=== PATIENT | male | born 1955 | race Caucasian/White ===

== ENCOUNTER 2024-09-13 18:13 | Inpatient (IN) ==
[2024-09-13 19:18] LABS: Basophils # (auto) 0.02 K/uL (0.00-0.20); Basophils % (auto) 0.3 %; Eosinophils # (auto) 0.13 K/uL (0.00-0.50); Eosinophils % (auto) 1.8 %; Hematocrit (blood only) 26.1 % (42.0-52.0); Hemoglobin 8.4 g/dl (14.0-18.0); Immature Granulocytes # (auto) 0.04 K/uL (0.01-0.20); Immature Granulocytes % (auto) 0.5 %; Lymphocytes # (auto) 0.58 K/uL (1.20-3.40); Lymphocytes % (auto) 7.9 %; Mean Corpuscular Hemoglobin 28.2 pg (25.0-34.0); Mean Corpuscular Hgb Conc 32.2 g/dL (32.0-36.0); Mean Corpuscular Volume 87.6 fL (80.0-100.0); Mean Platelet Volume 8.6 fL (9.4-12.4); Monocytes # (auto) 0.62 K/uL (0.11-0.59); Monocytes % (auto) 8.5 %; Neutrophils # (auto) 5.92 K/uL (1.40-6.50); Platelet Count 196 K/uL (130-400); RDW Coefficient of Variation 15.3 % (11.5-14.5); RDW Standard Deviation 48.9 fL (36.4-46.3); Red Blood Count 2.98 M/uL (4.70-6.10); White Blood Count 7.31 K/ul (4.8-10.8)
[2024-09-13 19:37] LABS: Albumin Globulin Ratio 1.2 (0.9-2); Albumin Level 4.2 gm/dl (3.4-5.0); BUN Creatinine Ratio 24.3 (10-20); Bilirubin,Total 0.7 mg/dl (0.2-1.0); Calcium 10.6 mg/dl (8.6-10.3); Creatinine Clr Calc Pharmacy 40.4 ml/min; Globulin 3.5 gm/dl (2.5-4.0); Magnesium 2.1 mg/dl (1.7-2.4); Potassium 4.3 mmol/L (3.5-5.1); Total Protein 7.7 gm/dl (6.0-8.3)
[2024-09-13 19:41] LABS: Troponin I High Sensitivity 17.9 pg/ml (0-20)
[2024-09-13 19:48] LABS: INR 1.1 (0.9-1.1); Partial Thromboplastin Ratio 1.1; Partial Thromboplastin Time 30 Seconds (21-31); Prothrombin Time 11.4 Seconds (9.0-12.0)
--- NOTE | 2024-09-13 20:32 | XRay Report ---
Exam(s): XR CXR 1 VIEW EXAM: XR Chest, 1 View CLINICAL HISTORY: Reason for exam: Sepsis. TECHNIQUE: Frontal view of the chest. COMPARISON: No relevant prior studies available. FINDINGS: Lungs: Perihilar peribronchial thickening as can be seen in the setting of infection or bronchitis. Pleural space: No pleural effusion. No pneumothorax. Heart: Unremarkable. No cardiomegaly. IMPRESSION: Perihilar peribronchial thickening as can be seen in the setting of infection or bronchitis. Electronically signed by: Presley Mata MD 09/13/24 20:31 PM
--- NOTE | 2024-09-13 21:48 | CT Scan Report ---
Exam(s): CT RIGHT FOOT Without Contrast EXAM: CT Right Lower Extremity Without Intravenous Contrast, Foot CLINICAL HISTORY: Reason for exam: wound, ?osteomyelitis. TECHNIQUE: Axial computed tomography images of the right foot without intravenous contrast. CTDI is 25.05 mGy and DLP is 563.14 mGy-cm. Automated exposure control was utilized for the study. A dose lowering technique was utilized adhering to the principles of ALARA. COMPARISON: No relevant prior studies available. FINDINGS/IMPRESSION: Extensive destructive changes throughout the midfoot, TMT joints, subtalar joint, and to lesser degree at the ankle. Midfoot collapse. Extensive soft tissue edema. Fluid collection likely infiltrating throughout the midfoot. Superficial fluid collection and ulceration along the medial aspect of the plantar midfoot. Concerning for abscess. Electronically signed by: Presley Mata MD 09/13/24 21:47 PM
--- NOTE | 2024-09-13 22:07 | Emergency Department Note ---
Impression & Plan Osteomyelitis, Acute pain of right foot, Swelling of right foot, CKD stage 3b, GFR 30-44 ml/min, Abscess of right foot ED Provider Note ED Provider Note NAME: KRISTIE CAREY AGE:69 SEX: Male : 1955 ARRIVES VIA: private vehicle INFORMANT: Patient ED PROVIDER(s): Leni Alexander DO CHIEF COMPLAINT: right foot swelling and infection HPI: This is a 69-year-old male presents emergency department with family bedside due to concern for acutely worsening right foot infection. Patient is a known diabetic and states he was treated over the summer for likely osteomyelitis. They states he received several weeks of IV antibiotics through a PICC line and it was subsequently removed. They state over the last several weeks he has been following with outpatient wound care and the wounds residual from this to the right foot appeared to be healing. He states of the last several days he had some increased swelling again, and when seen at wound care the ulcerative area appeared to show tunneling as they were able to stick a Q- tip in there approximately 5 cm per the daughter's report. He states he did have increased swelling and pain and today throughout the day noticed a rapidly increasing swelling and discoloration particularly along the medial aspect of the right foot. He denies fevers, chills, or other joint pains. PAST MEDICAL HISTORY:See Below PAST SURGICAL HISTORY:See Below FAMILY HISTORY:See Below SOCIAL HISTORY:See Below HOME MEDICATIONS:See Below ALLERGIES:See Below VITALS:See Below PHYSICAL EXAMINATION: GENERAL: alert, well appearing, well nourished, no distress, non-toxic EYE EXAM: normal conjunctiva, PERRL and EOM's grossly intact OROPHARYNX: no exudate, no erythema, lips, buccal mucosa, and tongue normal and mucous membranes are moist NECK: supple, no nuchal rigidity, no adenopathy, non-tender LUNGS: Clear to auscultation. Normal chest wall mechanics, no w/r/r HEART: no murmurs, S1 normal and S2 normal ABDOMEN: abdomen soft, non-tender, normo-active bowel sounds, no masses, no rebound or guarding. BACK: Back is symmetrical on inspection and there is no deformity, no midline tenderness, no CVA tenderness. SKIN: no rashes, petechiae, orbruising UPPER EXTREMITIES: upper extremities are grossly normal. FROM, nml pulses b/l. LOWER EXTREMITIES: b/l pitting edema. FROM, Tenderness with palpation along the medial aspect of the right foot, gross swelling/deformity noted to the medial aspect along the arch with discolorations and central fluctuance, no bony tenderness at the ankle of the right foot, edema noted to the toes and plantar aspect additionally, 1cm ulcerative area along the plantar aspect of the arch that was cultured as clear fluid able to be expressed; no ascending lymphangitis. NEURO EXAM: Normal sensorium, cranial nerves II-XII grossly intact, normal speech, no facial droop,nogross weakness of arms, no gross weakness of legs. Gross sensation intact. No ataxia. Vital Signs: reviewed and remarkable Differential Diagnosis: cellulitis, abscess, osteomyelitis, fracture, deep space infection, tenosynovitis, as well as others were considered MEDICAL DECISION MAKING: This is a 69 yo male who presents to the ER with concern for increased pain and swelling to the right foot where he has previously had osteomyelitis but was told it had resolved after IV antibiotics this summer. He stated today swelling along the right arch occurred more rapidly. Patient is a diabetic. He denies recent trauma. Large fluctuant area with several areas of discoloration noted to the right foot around the medial arch. Foot is edematous. He was afebrile and VS stable. Labs drawn and sent, IV established, EKG and CXR performed and interpreted at bedside, and patient placed on telemetry. Wound culture obtained from small ulcerative lesion along the planter aspect of the arch. Patient sent for CT foot and I discussed antibiotics with pharmacist, Angel, given recent kidney injury from vancomycin. We discussed renal dosing. CT foot suggestive of abscess and bony destruction at the midfoot suggesting osteomyelitis. Patient also has a hx of Charcot neuropathy. Case discussed with the hospitalist team for additional evaluation and mgmt. Consultation(s): 2239: Discussed with Dr. Renteria, [facility] hospitalist team, for additional evaluation and management. ER Treatment Provided: See below Diagnostics Interpreted By Me: -ECG: nsr at 94, 1st degree AV block, nml axis, nml intervals, no acute ST/T wave changes -Cardiac Monitoring: An order was placed for continuous cardiac monitoring. The monitor shows a rate of 86 with normal sinus rhythm. -Laboratory studies: As stated above and show below. -Imaging studies: X-ray Chest: A single view study of the chest was reviewed and was negative for cardiomegaly, focal infiltrate, effusion, pulmonary edema, or wide mediastinum. Triage Nursing Note Reviewed Prior/Outside Records Reviewed Past Med/Surg History Problem List (Updated 09/14/24 @ 13:36 by Leni Alexander DO) Abscess of right foot (Acute) Swelling of right foot (Acute) Acute pain of right foot (Acute) Osteomyelitis (Acute) Charcot joint of right foot Hyperlipidemia Anemia in chronic kidney disease (CKD) Insomnia PAD (peripheral artery disease) BPH w urinary obs/LUTS Hypertension Diabetes mellitus CKD stage 3b, GFR 30-44 ml/min (Acute) Osteomyelitis of right foot Medical History Vancomycin adverse reaction History of Clostridioides difficile colitis History of deep venous thrombosis (DVT) of distal vein of right lower extremity Social History Smoking Status: Never smoker Hx Alcohol Use: No Hx Substance Use: No Preferred Language: Georgian Communication Ability: Effective Dental Scheduler Required: No Beliefs That Will Affect Care: None Current Living Situation: Family Current Living Situation Comment: With daughter Ayla Other Information That Helps Us Care for You: No Feels Safe at Home: Yes Safety Concerns: Feels Safe At This Time Assistive Devices: Cane and Glasses Allergies Allergies Allergy/AdvReac Type Severity Reaction Status Date / Time vancomycin AdvReac caused Verified 09/13/24 22:47 kidney failure Home Meds Home Medications Medication Instructions Recorded Confirmed amlodipine 10 mg tablet 10 mg PO QAM 09/13/24 09/13/24 atorvastatin 10 mg tablet 10 mg PO HS 09/13/24 09/13/24 epoetin josselin 20,000 unit/mL 20,000 unit .EVERY OTHER WEEK 09/13/24 09/13/24 injection solution (Procrit) ergocalciferol (vitamin D2) 1,250 1,250 mcg PO WK 09/13/24 09/13/24 mcg (50,000 unit) capsule fluticasone propionate 50 2 spray intranasal DAILY 09/13/24 09/13/24 mcg/actuation nasal spray,suspension furosemide 40 mg tablet 40 mg PO DAILY PRN swelling 09/13/24 09/13/24 hydralazine 50 mg tablet 50 mg PO AMHS 09/13/24 09/13/24 insulin glargine 100 unit/mL (3 30 unit subcut [facility] 09/13/24 09/13/24 mL) subcutaneous pen (Lantus Solostar U-100 Insulin) metoprolol succinate 25 mg 25 mg PO QPM 09/13/24 09/13/24 tablet,extended release 24 hr polysaccharide iron complex 150 mg 150 mg PO QAM 09/13/24 09/13/24 iron capsule sevelamer HCl 800 mg tablet 800 mg PO BIDM 09/13/24 09/13/24 sodium bicarbonate 650 mg tablet 650 mg PO TID 09/13/24 09/13/24 tamsulosin 0.4 mg capsule 0.4 mg PO HS 09/13/24 09/13/24 zolpidem 10 mg tablet 10 mg PO HS PRN Sleep 09/13/24 09/13/24 Results & Data (ED) Vital Signs Vital Signs - 24 hr 09/13/24 18:31 09/13/24 21:19 09/13/24 21:19 Temperature 37.1 C Temperature Source Oral Pulse Rate 90 Pulse Rate [Apical] 80 Pulse Rhythm [Apical] Pulse Strength [Apical] Weak Respiratory Rate 18 19 Respiratory Effort / Characteristics Non-Labored Spontaneous Non-Labored Spontaneous Respiratory Depth Normal Normal Respiratory Pattern Blood Pressure 114/80 Blood Pressure [Right Arm] 141/79 H Blood Pressure Mean 91 Blood Pressure Mean [Right Arm] 99 Blood Pressure Position Sitting Blood Pressure Position [Right Arm] Semi-fowlers Pulse Oximetry 98 94 95 Oxygen Delivery Method Room Air Room Air Room Air Sepsis Recent Fever Within 48 Hours No Sepsis New/Unexplained Change in Mental Status No Sepsis Action Taken by Nursing No Action Required 09/13/24 21:19 09/13/24 21:28 09/13/24 23:00 Temperature Temperature Source Pulse Rate 84 83 Pulse Rate [Apical] 88 Pulse Rhythm [Apical] Regular Pulse Strength [Apical] Normal Respiratory Rate 23 18 Respiratory Effort / Characteristics Non-Labored Respiratory Depth Normal Respiratory Pattern Regular Blood Pressure Blood Pressure [Right Arm] 143/96 H Blood Pressure Mean Blood Pressure Mean [Right Arm] 111 Blood Pressure Position Blood Pressure Position [Right Arm] Sitting Pulse Oximetry 95 93 Oxygen Delivery Method Room Air Room Air Sepsis Recent Fever Within 48 Hours Sepsis New/Unexplained Change in Mental Status Sepsis Action Taken by Nursing Laboratory Data 09/14/24 07:06 09/14/24 07:06 Lab Results 09/13/24 09/13/24 Range/Units 18:55 23:29 WBC 7.31 (4.8-10.8) K/ul RBC 2.98 L (4.70-6.10) M/uL Hgb 8.4 L (14.0-18.0) g/dl Hct 26.1 L (42.0-52.0) % MCV 87.6 (80.0-100.0) fL MCH 28.2 (25.0-34.0) pg MCHC 32.2 (32.0-36.0) g/dL RDW Std Deviation 48.9 H (36.4-46.3) fL RDW Coeff of Mark 15.3 H (11.5-14.5) % Plt Count 196 (130-400) K/uL MPV 8.6 L (9.4-12.4) fL Immature Gran % (Auto) 0.5 % Neut % (Auto) 81.0 % Lymph % (Auto) 7.9 % Riley % (Auto) 8.5 % Eos % (Auto) 1.8 % Baso % (Auto) 0.3 % Neut # (Auto) 5.92 (1.40-6.50) K/uL Lymph # (Auto) 0.58 L (1.20-3.40) K/uL Riley # (Auto) 0.62 H (0.11-0.59) K/uL Eos # (Auto) 0.13 (0.00-0.50) K/uL Baso # (Auto) 0.02 (0.00-0.20) K/uL Immature Gran # (Auto) 0.04 (0.01-0.20) K/uL PT 11.4 (9.0-12.0) Seconds INR 1.1 (0.9-1.1) APTT 30 (21-31) Seconds PTT Ratio 1.1 Sodium 137 (136-145) mmol/L Potassium 4.3 (3.5-5.1) mmol/L Chloride 104 (98-107) mmol/L Carbon Dioxide 23 (21-32) mmol/L Anion Gap 10 (3-11) BUN 57 H (6-23) mg/dl Creatinine 2.35 H (0.6-1.4) mg/dl Est Cr Clr Drug Dosing 40.4 ml/min eGFR 29.22 BUN/Creatinine Ratio 24.3 H (10-20) Glucose 187 H (70-99(Fasting)) mg/dl POC Glucose 198 H (70-99) mg/dl Lactate 0.9 (0.4-2.0) mmol/L Calcium 10.6 H (8.6-10.3) mg/dl Magnesium 2.1 (1.7-2.4) mg/dl Total Bilirubin 0.7 (0.2-1.0) mg/dl AST 26 (13-39) U/L ALT 33 (7-52) U/L Alkaline Phosphatase 188 H (34-104) U/L Troponin I High Sens 17.9 (0-20) pg/ml Total Protein 7.7 (6.0-8.3) gm/dl Albumin 4.2 (3.4-5.0) gm/dl Globulin 3.5 (2.5-4.0) gm/dl Albumin/Globulin Ratio 1.2 (0.9-2) Procalcitonin 0.29 (0-0.5) ng/ml Administered Medications Amlodipine Besylate (Amlodipine Besylate 5 Mg Tab) 10 mg PO QAM [facility] Stop: 10/14/24 08:59 Last Admin: 09/14/24 08:39 Dose: 10 mg Documented By: DEBBIE Fluticasone Propionate (Fluticasone Propionate Na Spr 16 Gm Btl) 2 sprays SHILOH DAILY [facility] Stop: 10/14/24 08:59 Last Admin: 09/14/24 08:38 Dose: 2 sprays Documented By: DEBBIE Hydralazine HCl (Hydralazine Tab 50 Mg Tab) 50 mg PO [facility] Stop: 10/14/24 08:59 Last Admin: 09/14/24 08:39 Dose: 50 mg Documented By: DEBBIE Cefepime HCl (Maxipime 2000mg) 2,000 mg in 20 mls @ 5 mls/min IV Q12H [facility]; Protocol Stop: 09/21/24 09:59 Last Admin: 09/14/24 08:37 Dose: 5 mls/min Documented By: DEBBIE Linezolid (Zyvox) 600 mg in 300 mls @ 300 mls/hr IV Q12H [facility] Stop: 09/21/24 09:59 Last Infusion: 09/14/24 09:44 Dose: Infused Documented By: Admin: 09/14/24 08:38 Dose: 300 mls/hr Documented By: DEBBIE Lactated Ringer's (Lr) 1,000 mls @ 15 mls/hr IV .Q24H [facility] Stop: 09/15/24 05:59 Last Admin: 09/14/24 13:09 Dose: 15 mls/hr Documented By: SALVADOR Insulin Aspart (Insulin Aspart Per Unit Charge) 0 units SC Q6 [facility] Stop: 10/14/24 05:59 Last Admin: 09/14/24 12:01 Dose: Not Given Documented By: Admin: 09/14/24 05:54 Dose: 1 units Documented By: SYEDA Co-signed By: JOEY Polysaccharide Iron Complex (Iron Polysaccharide Complex 150 Mg Capsule) 150 mg PO QAM [facility] Stop: 10/14/24 08:59 Last Admin: 09/14/24 08:39 Dose: 150 mg Documented By: DEBBIE Sevelamer Carbonate (Sevelamer Carbonate 800 Mg Tab) 800 mg PO BIDM [facility] Stop: 10/14/24 07:59 Last Admin: 09/14/24 08:39 Dose: 800 mg Documented By: DEBBIE Sodium Bicarbonate (Sodium Bicarbonate 650 Mg Tab) 650 mg PO TID [facility] Stop: 10/14/24 08:59 Last Admin: 09/14/24 08:39 Dose: 650 mg Documented By: DEBBIE Zolpidem Tartrate (Zolpidem Tartrate 5 Mg Tab) 10 mg PO HS PRN PRN Reason: Sleep Stop: 10/14/24 02:38 Last Admin: 09/14/24 02:49 Dose: 10 mg Documented By: SYEDA Discontinued Medications Atorvastatin Calcium (Atorvastatin 10 Mg Tab) 10 mg PO NOW STA Stop: 09/13/24 23:41 Last Admin: 09/14/24 01:57 Dose: 10 mg Documented By: LIZA Bupivacaine HCl (Bupivacaine 0.5 % 5 Mg/1 Ml Mpf 30ml Vial) Confirm Administered Dose 30 ml .ROUTE .STK-MED ONE Stop: 09/14/24 12:40 Last Admin: 09/14/24 13:21 Dose: 20 ml Documented By: [id number] Cefepime HCl (Maxipime 2000mg) 2,000 mg in 20 mls @ 5 mls/min IV NOW STA; Protocol Stop: 09/13/24 22:07 Last Admin: 09/13/24 22:25 Dose: 5 mls/min Documented By: EARNEST Linezolid (Zyvox) 600 mg in 300 mls @ 300 mls/hr IV NOW STA Stop: 09/13/24 23:03 Last Infusion: 09/13/24 23:31 Dose: Infused Documented By: Admin: 09/13/24 22:26 Dose: 300 mls/hr Documented By: EARNEST Sodium Chloride (Nss) 1,000 mls @ 125 mls/hr IV .Q8H [facility] Stop: 09/14/24 06:29 Last Infusion: 09/14/24 08:42 Dose: Infused Documented By: Admin: 09/13/24 22:25 Dose: 125 mls/hr Documented By: EARNEST Insulin Glargine (Lantus Per Unit Charge) 15 units SQ NOW STA Stop: 09/13/24 23:30 Last Admin: 09/14/24 01:58 Dose: 15 units Documented By: LIZA Co-signed By: OLIVIER Insulin Glargine (Lantus Per Unit Charge) 15 units SQ [facility] Stop: 10/14/24 08:59 Last Admin: 09/14/24 08:38 Dose: 15 units Documented By: DEBBIE Co-signed By: CARLOS Metoprolol Succinate (Metoprolol Succ 25mg Ext Rel Tab) 25 mg PO NOW STA Stop: 09/13/24 23:30 Last Admin: 09/14/24 01:57 Dose: 25 mg Documented By: LIZA Sevelamer Carbonate (Sevelamer Carbonate 800 Mg Tab) 800 mg PO NOW STA Stop: 09/13/24 23:30 Last Admin: 09/14/24 01:57 Dose: 800 mg Documented By: LIZA Sodium Bicarbonate (Sodium Bicarbonate 650 Mg Tab) 650 mg PO NOW STA Stop: 09/13/24 23:30 Last Admin: 09/14/24 01:57 Dose: 650 mg Documented By: LIZA Tamsulosin HCl (Tamsulosin Hcl 0.4 Mg Cap) 0.4 mg PO NOW STA Stop: 09/13/24 23:42 Last Admin: 09/14/24 01:57 Dose: 0.4 mg Documented By: [employer] Data Radiologist's Impression: Duplex Scan Lower Extremity Artery 09/13/24 23:25 EXAM: US arterial duplex LE BI CLINICAL HISTORY: HX: no previous. right foot infection. H/O PAD per patient TECHNIQUE: Ultrasound examination of the bilateral lower extremities arteries with no ankle brachial indices performed. One or more of the following were performed- spectral analysis, resistive index, waveform analysis, and pulsed Doppler. COMPARISON: None. FINDINGS: Vessel Flow Pattern Right Peak Velocity Right (cm/sec) Flow Pattern Left Peak Velocity Left (cm/sec) Common Femoral Artery (RESAW OPERATOR) Triphasic 127 Triphasic 147 Deep Femoral Artery (DPA) Triphasic 66 Triphasic 97 Superficial Femoral Artery (SFA) Triphasic Proximal: 127. Mid: 101. Distal: 105. Triphasic Proximal: 148. Mid: 116. Distal: 104. Popliteal Artery (POP A) Triphasic Proximal: 90. Mid: 92. Distal: 90. Triphasic Proximal: 104. Distal: 99. Posterior Tibial Artery (NEON SIGN ERECTOR), proximal Triphasic prox:117 mid:204 pre-sten:133 at sten:209 post-sten:142 dist:114 Triphasic prox:54 mid:39 dist: 115 Peroneal artery Triphasic Proximal:31 Mid: 36. Distal: 44. Triphasic Proximal:56 Mid: 88. Distal: 63. Anterior tibial artery CHRISTY Triphasic Proximal: 126. Mid: 66. Distal: 100. Triphasic Proximal: 71. Mid: 100. Distal: 99. Dorsalis Pedis Artery (DPA) Triphasic 144 Triphasic 96 Triphasic waveform seen throughout bilateral lower limb arteries. Multiple small mural plaques seen throughout the arteries of both lower extremities. Increased peak systolic velocities of the right posterior tibial artery measuring 209 cm/s suggesting 50 to 70% stenosis. No other hemodynamically significant stenosis is noted in the arteries of both lower extremities. The peak systolic velocities are within normal limit bilaterally. Collateral Circulation: Evaluation of collateral vessels: None. No significant collateral circulation noted indicative of chronic arterial occlusion. Additional Findings: Edema seen in both calves limiting the visualization of calf vessels. IMPRESSION: 1. Multiple small mural plaques seen throughout the arteries of both lower extremities. 2. Increased peak systolic velocities of the right posterior tibial artery measuring 209 cm/s suggesting 50 to 70% stenosis. 3. Edema seen in both calves limiting the visualization of calf vessels. 4. No other hemodynamically significant stenosis is noted in the arteries of both lower extremities. Electronically signed by Moreno Chan 09-14-2024 03:02 AM Venous Doppler Study 09/13/24 23:25 EXAM: US venous doppler LE BI CLINICAL HISTORY: HX: No prev. Right foot infection. B/L LE swelling. H/O DVT per pt. TECH NOTES TO RADIOLOGIST (not to be included in final report): No obvious DVT B/L LE. Edema B/L calves, limiting vis. Complex collections bilateral pop fossa, reza: RT pop fossa: 6.3 x 1.2x 4.1 cm. LT pop fossa: 9.3 x 1.8 x 4.2 cm. Prominent probably lymph nodes bilat groin reza: RT groin: 6.1 x 1.5 x 3.8 cm LT groin : 4.5 x 0.7 x 1.7 cm TECHNIQUE: Ultrasound examination of bilateral lower extremity veins was performed in real time and duplex. One or more of the following were performed- spectral analysis, resistive index, waveform analysis, and pulsed Doppler. COMPARISON: None. FINDINGS: Normal phasic, non-pulsatile, and spontaneous flow is noted in bilateral GSV, common femoral, superficial femoral, popliteal and posterior tibial and peroneal veins. Visualized veins of both lower extremities demonstrate normal compressibility. No sonographic evidence of acute deep vein thrombosis (DVT) is detected in the visualized veins of both lower extremities. Compression and Augmentation: All evaluated veins compress fully with applied transducer pressure. Augmentation of venous flow is noted with distal compression. Additional Findings: No evidence of intraluminal thrombus. Bilateral leg and calf edema limiting the visualization of the veins. Complex area is seen at the right popliteal fossa measuring 6.3 x 1.2 x 4.1 cm. A similar complex area is seen at the left popliteal fossa measuring 9.3 x 1.8 x 4.2 cm. Enlarged lymph nodes were seen at the bilateral inguinal areas measuring at the right side 6.1 x 1.5 x 3.8 cm, and the left inguinal region measuring 4.5 x 0.7 x 1.7 cm. IMPRESSION: 1. No sonographic evidence of acute DVT is detected in bilateral common femoral, superficial femoral, popliteal and posterior tibial and peroneal veins, at the time of examination. 2. Bilateral leg and calf edema limiting the visualization of the veins. 3. Bilateral Popliteal fossa complex areas are seen likely complex Dowling's cyst. 4. Bilateral inguinal enlarged lymph nodes. 5. Clinical correlation is advised. Disclaimer: DVT could be missed early in the disease when clot burden is minimal. For patients with moderate and high pretest probability of DVT and negative ultrasound, the [employer] clinical guidelines recommend testing with a D-dimer assay or repeat ultrasound in 5-7 days. If symptoms worsen, the Society of radiologists in ultrasound recommends repeating ultrasound even earlier. Electronically signed by Moreno Chan 09-14-2024 02:59 AM Discharge Plan Visit Data Chief Complaint: Foot Injury/Pain Stated Complaint: RIGHT FOOT PAIN, SWELLING, ABCESS ED Provider: Leni Alexander Discharge Problem: Osteomyelitis, Acute pain of right foot, Swelling of right foot, CKD stage 3b, GFR 30-44 ml/min, Abscess of right foot Patient Disposition: Admitted As Inpatient Discharge Instructions Interventions: ED Discharge Assessment Last Done: 09/14/24 02:11
[2024-09-13] MEDS: SODIUM CHLORIDE 0.9% 1,000 ML IV SCH (22:25)
[2024-09-13] MEDS: CEFEPIME 2000MG 2,000 MG/20 ML SYR IV STA (22:25)
[2024-09-13] MEDS: LINEZOLID 600 MG/300 ML BAG IV STA (22:26)
[2024-09-13] MEDS ORDERED: MoRPHine SULFATE 2 MG/ML CARP IV PRN (23:41)
[2024-09-13] MEDS ORDERED: MoRPHine SULFATE 4 MG/ML 1 ML CARP\\VIAL IV PRN (23:41)
--- NOTE | 2024-09-13 23:48 | History & Physical Report ---
Date of Service September 13, 2024 Assessment & Plan (1) Osteomyelitis of right foot: (2) CKD stage 3b, GFR 30-44 ml/min: (3) Diabetes mellitus: (4) Hypertension: (5) PAD (peripheral artery disease): (6) Anemia in chronic kidney disease (CKD): Plan Recurrent right foot osteomyelitis- Patient records requested from [facility], where he was treated with 6 weeks of IV antibiotics Follow blood culture and blood culture sensitivities Empiric Zyvox 600 mg IV every 12 hours and cefepime 2 g IV every 12 hours Patient with adverse reaction to vancomycin, which cannot be used Zyvox chosen instead of daptomycin, due to question of possible bronchitis on chest x-ray CT scan of foot shows extensive struct of changes throughout the midfoot, TMT joints, subtalar joint, and to lesser degree at the ankle. Midfoot collapse. Extensive soft tissue edema. Fluid collection likely infiltrating throughout the midfoot. Superficial fluid collection and ulceration along the medial aspect of the plantar midfoot concerning for abscess Patient did have history of right lower extremity DVT, but has negative venous Dopplers this evening Lower extremity arterial Dopplers show bilateral plaque both lower extremities, and 50 to 70% stenosis of the right posterior tibial artery. Triphasic waveforms throughout both lower extremities Consult podiatry for possible I&D Patient will likely need PICC line placement and long-term IV antibiotics As noted above, obtaining records from [facility] Acetaminophen 650 mg by mouth every 6 hours as needed for mild pain or fever Morphine sulfate 2 mg IV every 3 hours as needed for moderate pain Morphine sulfate 4 mg IV every 3 hours as needed for severe pain Consult to infectious disease Consult to wound care CKD- Family reports acute injury occurred while using vancomycin IV for previous infection Creatinine 2.35 on admission, will need to compare to [facility] records Follow laboratory serially Placed on NSS at 125 mL/h Continue Savella Mayor, sodium bicarbonate, Niferex, vitamin D 2, and Procrit every other week Consult nephrology Diabetes mellitus- Glucose 187 on admission N.p.o. 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 Primary Care Provider: Jag Castellon The patient is a 69-year-old male with a past medical history including diabetic right foot osteomyelitis, that he and his family reports that he was treated with 6 weeks of IV antibiotics, and infection was reported to be healed. Patient had been doing reasonably well, but over the past week had noted some increased pain developing, and then this morning his right foot developed increased swelling and pain, with discharge noted. He went to [facility] emergency department, where they was standing room only, and since he was also interested in a second opinion, family brought him to [facility] ED for assessment. Patient reportedly had had a DVT in his right lower extremity, and had been on Eliquis, which had been stopped about 7 days ago after negative repeat ultrasound. He also had arterial Dopplers done at the same time which reportedly showed mild change without intervention needed. He reports a history of C. difficile colitis, associated with multiple courses of antibiotics for his diabetic foot ulcer, but no recent symptoms. Patient will be signing a records release form to update his records, and go over exact course of treatment that was done Allergies Allergy/AdvReac Type Severity Reaction Status Date / Time vancomycin AdvReac caused Verified 09/13/24 22:47 kidney failure Home Medications Medication Instructions Recorded Confirmed Type amlodipine 10 mg tablet 10 mg PO QAM 09/13/24 09/13/24 History atorvastatin 10 mg tablet 10 mg PO HS 09/13/24 09/13/24 History epoetin josselin 20,000 unit/mL 20,000 unit .EVERY OTHER WEEK 09/13/24 09/13/24 History injection solution (Procrit) ergocalciferol (vitamin D2) 1,250 1,250 mcg PO WK 09/13/24 09/13/24 History mcg (50,000 unit) capsule fluticasone propionate 50 2 spray intranasal DAILY 09/13/24 09/13/24 History mcg/actuation nasal spray,suspension furosemide 40 mg tablet 40 mg PO DAILY PRN swelling 09/13/24 09/13/24 History hydralazine 50 mg tablet 50 mg PO AMHS 09/13/24 09/13/24 History insulin glargine 100 unit/mL (3 30 unit subcut AMHS 09/13/24 09/13/24 History mL) subcutaneous pen (Lantus Solostar U-100 Insulin) metoprolol succinate 25 mg 25 mg PO QPM 09/13/24 09/13/24 History tablet,extended release 24 hr polysaccharide iron complex 150 mg 150 mg PO QAM 09/13/24 09/13/24 History iron capsule sevelamer HCl 800 mg tablet 800 mg PO BIDM 09/13/24 09/13/24 History sodium bicarbonate 650 mg tablet 650 mg PO TID 09/13/24 09/13/24 History tamsulosin 0.4 mg capsule 0.4 mg PO HS 09/13/24 09/13/24 History zolpidem 10 mg tablet 10 mg PO HS PRN Sleep 09/13/24 09/13/24 History Past Med/Surg History Problem List (Updated 09/14/24 @ 05:52 by Alexx Renteria MD) Hyperlipidemia Anemia in chronic kidney disease (CKD) Insomnia PAD (peripheral artery disease) BPH w urinary obs/LUTS Hypertension Diabetes mellitus CKD stage 3b, GFR 30-44 ml/min Osteomyelitis of right foot Medical History (Updated 09/14/24 @ 05:52 by Alexx Renteria MD) Vancomycin adverse reaction History of Clostridioides difficile colitis History of deep venous thrombosis (DVT) of distal vein of right lower extremity Social History Smoking Status: Never smoker Hx Alcohol Use: No Hx Substance Use: No Preferred Language: Indonesian Communication Ability: Effective Steam Engineer Required: No Beliefs That Will Affect Care: None Current Living Situation: Family Current Living Situation Comment: With daughter Ayla Other Information That Helps Us Care for You: No Feels Safe at Home: Yes Safety Concerns: Feels Safe At This Time Assistive Devices: Cane and Glasses Review of Systems Review of Systems: The patient denies chest pain, palpitations, shortness of breath, dyspnea on exertion, cough, sore throat, fevers, chills, sweats, weight change, fatigue, nausea, vomiting, diarrhea , constipation, abdominal pain, pelvic pain, blood in urine or stool, dysuria, urinary frequency or urgency, lightheadedness, dizziness, headache, memory loss, loss of consciousness, focal or generalized weakness, numbness or tingling in arms or left lower extremity, generalized arthralgias or myalgias, back or neck pain, or night sweats. The review of systems is otherwise negative other than for that already noted above, and at least 10 systems have been reviewed. Physical Exam Physical Exam: The patient is awake, alert and oriented 3, well developed and well nourished, normocephalic and atraumatic, lying in bed and in no acute distress. HEENT--PERRL, EOMI, mucous membranes and oropharynx mildly dry. Neck--supple. No JVD. No bruits. Thyroid normal, trachea midline, no adenopathy. Heart--normal S1 and S2. No murmurs, rubs or gallops. Lungs--clear bilaterally, no respiratory distress, no accessory muscle use. Abdomen--normal bowel sounds and soft. Nontender. Nondistended. Mildly obese Extremities--1+ bilateral pretibial and pedal edema diminished pulses bilaterally, in part related to lower extremity edema. Right first MTP and great toe with moderately severe edema and erythema, presently wrapped. Dermatologic--changes as above Neurologic--cranial nerves II through XII grossly intact. Rheumatologic--normal range of motion except for right lower extremity ankle and foot Psychiatric--normal affect. Results & Data Results & Data Vital Signs (Past 12 Hours) Vital Signs Temp Pulse Pulse Resp BP BP Pulse Ox 09/13/24 23:00 88 18 143/96 H 93 09/13/24 21:28 83 09/13/24 21:19 84 23 95 09/13/24 21:19 95 09/13/24 21:19 80 19 141/79 H 94 09/13/24 18:31 37.1 C 90 18 114/80 98 O2 Del Method 09/13/24 23:00 Room Air 09/13/24 21:28 09/13/24 21:19 Room Air 09/13/24 21:19 Room Air 09/13/24 21:19 Room Air 09/13/24 18:31 Room Air Laboratory Results Laboratory Results WBC 7.31 K/ul (4.8-10.8) 09/13/24 18:55 RBC 2.98 M/uL (4.70-6.10) L 09/13/24 18:55 Hgb 8.4 g/dl (14.0-18.0) L 09/13/24 18:55 Hct 26.1 % (42.0-52.0) L 09/13/24 18:55 MCV 87.6 fL (80.0-100.0) 09/13/24 18:55 MCH 28.2 pg (25.0-34.0) 09/13/24 18:55 MCHC 32.2 g/dL (32.0-36.0) 09/13/24 18:55 RDW Std Deviation 48.9 fL (36.4-46.3) H 09/13/24 18:55 RDW Coeff of Mark 15.3 % (11.5-14.5) H 09/13/24 18:55 Plt Count 196 K/uL (130-400) 09/13/24 18:55 MPV 8.6 fL (9.4-12.4) L 09/13/24 18:55 Immature Gran % (Auto) 0.5 % 09/13/24 18:55 Neut % (Auto) 81.0 % 09/13/24 18:55 Lymph % (Auto) 7.9 % 09/13/24 18:55 [place] % (Auto) 8.5 % 09/13/24 18:55 Eos % (Auto) 1.8 % 09/13/24 18:55 Baso % (Auto) 0.3 % 09/13/24 18:55 Neut # (Auto) 5.92 K/uL (1.40-6.50) 09/13/24 18:55 Lymph # (Auto) 0.58 K/uL (1.20-3.40) L 09/13/24 18:55 [place] # (Auto) 0.62 K/uL (0.11-0.59) H 09/13/24 18:55 Eos # (Auto) 0.13 K/uL (0.00-0.50) 09/13/24 18:55 Baso # (Auto) 0.02 K/uL (0.00-0.20) 09/13/24 18:55 Immature Gran # (Auto) 0.04 K/uL (0.01-0.20) 09/13/24 18:55 PT 11.4 Seconds (9.0-12.0) 09/13/24 18:55 INR 1.1 (0.9-1.1) 09/13/24 18:55 APTT 30 Seconds (21-31) 09/13/24 18:55 PTT Ratio 1.1 09/13/24 18:55 Sodium 137 mmol/L (136-145) 09/13/24 18:55 Potassium 4.3 mmol/L (3.5-5.1) 09/13/24 18:55 Chloride 104 mmol/L (98-107) 09/13/24 18:55 Carbon Dioxide 23 mmol/L (21-32) 09/13/24 18:55 Anion Gap 10 (3-11) 09/13/24 18:55 BUN 57 mg/dl (6-23) H 09/13/24 18:55 Creatinine 2.35 mg/dl (0.6-1.4) H 09/13/24 18:55 Est Cr Clr Drug Dosing 40.4 ml/min 09/13/24 18:55 eGFR 29.22 09/13/24 18:55 BUN/Creatinine Ratio 24.3 (10-20) H 09/13/24 18:55 Glucose 187 mg/dl (70-99(Fasting)) H 09/13/24 18:55 POC Glucose 198 mg/dl (70-99) H 09/13/24 23:29 Lactate 0.9 mmol/L (0.4-2.0) 09/13/24 18:55 Calcium 10.6 mg/dl (8.6-10.3) H 09/13/24 18:55 Magnesium 2.1 mg/dl (1.7-2.4) 09/13/24 18:55 Total Bilirubin 0.7 mg/dl (0.2-1.0) 09/13/24 18:55 AST 26 U/L (13-39) 09/13/24 18:55 ALT 33 U/L (7-52) 09/13/24 18:55 Alkaline Phosphatase 188 U/L (34-104) H 09/13/24 18:55 Troponin I High Sens 17.9 pg/ml (0-20) 09/13/24 18:55 Total Protein 7.7 gm/dl (6.0-8.3) 09/13/24 18:55 Albumin 4.2 gm/dl (3.4-5.0) 09/13/24 18:55 Globulin 3.5 gm/dl (2.5-4.0) 09/13/24 18:55 Albumin/Globulin Ratio 1.2 (0.9-2) 09/13/24 18:55 Procalcitonin 0.29 ng/ml (0-0.5) 09/13/24 18:55 Impressions Chest X-Ray 09/13/24 18:35 Exam(s): XR CXR 1 VIEW EXAM: XR Chest, 1 View CLINICAL HISTORY: Reason for exam: Sepsis. TECHNIQUE: Frontal view of the chest. COMPARISON: No relevant prior studies available. FINDINGS: Lungs: Perihilar peribronchial thickening as can be seen in the setting of infection or bronchitis. Pleural space: No pleural effusion. No pneumothorax. Heart: Unremarkable. No cardiomegaly. IMPRESSION: Perihilar peribronchial thickening as can be seen in the setting of infection or bronchitis. Electronically signed by: Presley Mata MD 09/13/24 20:[address] 09/13/24 20:31 Exam(s): CT RIGHT FOOT Without Contrast EXAM: CT Right Lower Extremity Without Intravenous Contrast, Foot CLINICAL HISTORY: Reason for exam: wound, ?osteomyelitis. TECHNIQUE: Axial computed tomography images of the right foot without intravenous contrast. CTDI is 25.05 mGy and DLP is 563.14 mGy-cm. Automated exposure control was utilized for the study. A dose lowering technique was utilized adhering to the principles of ALARA. COMPARISON: No relevant prior studies available. FINDINGS/IMPRESSION: Extensive destructive changes throughout the midfoot, TMT joints, subtalar joint, and to lesser degree at the ankle. Midfoot collapse. Extensive soft tissue edema. Fluid collection likely infiltrating throughout the midfoot. Superficial fluid collection and ulceration along the medial aspect of the plantar midfoot. Concerning for abscess. Electronically signed by: Presley Mata MD 09/13/24 21:47 PM Duplex Scan Lower Extremity Artery 09/13/24 23:25 EXAM: US arterial duplex LE BI CLINICAL HISTORY: HX: no previous. right foot infection. H/O PAD per patient TECHNIQUE: Ultrasound examination of the bilateral lower extremities arteries with no ankle brachial indices performed. One or more of the following were performed- spectral analysis, resistive index, waveform analysis, and pulsed Doppler. COMPARISON: None. FINDINGS: Vessel Flow Pattern Right Peak Velocity Right (cm/sec) Flow Pattern Left Peak Velocity Left (cm/sec) Common Femoral Artery (INTERLOCKING PAVEMENT INSTALLER) Triphasic 127 Triphasic 147 Deep Femoral Artery (DPA) Triphasic 66 Triphasic 97 Superficial Femoral Artery (SFA) Triphasic Proximal: 127. Mid: 101. Distal: 105. Triphasic Proximal: 148. Mid: 116. Distal: 104. Popliteal Artery (POP A) Triphasic Proximal: 90. Mid: 92. Distal: 90. Triphasic Proximal: 104. Distal: 99. Posterior Tibial Artery (BATTERY BUILDER), proximal Triphasic prox:117 mid:204 pre-sten:133 at sten:209 post-sten:142 dist:114 Triphasic prox:54 mid:39 dist: 115 Peroneal artery Triphasic Proximal:31 Mid: 36. Distal: 44. Triphasic Proximal:56 Mid: 88. Distal: 63. Anterior tibial artery CHRISTY Triphasic Proximal: 126. Mid: 66. Distal: 100. Triphasic Proximal: 71. Mid: 100. Distal: 99. Dorsalis Pedis Artery (DPA) Triphasic 144 Triphasic 96 Triphasic waveform seen throughout bilateral lower limb arteries. Multiple small mural plaques seen throughout the arteries of both lower extremities. Increased peak systolic velocities of the right posterior tibial artery measuring 209 cm/s suggesting 50 to 70% stenosis. No other hemodynamically significant stenosis is noted in the arteries of both lower extremities. The peak systolic velocities are within normal limit bilaterally. Collateral Circulation: Evaluation of collateral vessels: None. No significant collateral circulation noted indicative of chronic arterial occlusion. Additional Findings: Edema seen in both calves limiting the visualization of calf vessels. IMPRESSION: 1. Multiple small mural plaques seen throughout the arteries of both lower extremities. 2. Increased peak systolic velocities of the right posterior tibial artery measuring 209 cm/s suggesting 50 to 70% stenosis. 3. Edema seen in both calves limiting the visualization of calf vessels. 4. No other hemodynamically significant stenosis is noted in the arteries of both lower extremities. Electronically signed by Moreno Chan 09-14-2024 03:02 AM Venous Doppler Study 09/13/24 23:25 EXAM: US venous doppler LE BI CLINICAL HISTORY: HX: No prev. Right foot infection. B/L LE swelling. H/O DVT per pt. TECH NOTES TO RADIOLOGIST (not to be included in final report): No obvious DVT B/L LE. Edema B/L calves, limiting vis. Complex collections bilateral pop fossa, reza: RT pop fossa: 6.3 x 1.2x 4.1 cm. LT pop fossa: 9.3 x 1.8 x 4.2 cm. Prominent probably lymph nodes bilat groin reza: RT groin: 6.1 x 1.5 x 3.8 cm LT groin : 4.5 x 0.7 x 1.7 cm TECHNIQUE: Ultrasound examination of bilateral lower extremity veins was performed in real time and duplex. One or more of the following were performed- spectral analysis, resistive index, waveform analysis, and pulsed Doppler. COMPARISON: None. FINDINGS: Normal phasic, non-pulsatile, and spontaneous flow is noted in bilateral GSV, common femoral, superficial femoral, popliteal and posterior tibial and peroneal veins. Visualized veins of both lower extremities demonstrate normal compressibility. No sonographic evidence of acute deep vein thrombosis (DVT) is detected in the visualized veins of both lower extremities. Compression and Augmentation: All evaluated veins compress fully with applied transducer pressure. Augmentation of venous flow is noted with distal compression. Additional Findings: No evidence of intraluminal thrombus. Bilateral leg and calf edema limiting the visualization of the veins. Complex area is seen at the right popliteal fossa measuring 6.3 x 1.2 x 4.1 cm. A similar complex area is seen at the left popliteal fossa measuring 9.3 x 1.8 x 4.2 cm. Enlarged lymph nodes were seen at the bilateral inguinal areas measuring at the right side 6.1 x 1.5 x 3.8 cm, and the left inguinal region measuring 4.5 x 0.7 x 1.7 cm. IMPRESSION: 1. No sonographic evidence of acute DVT is detected in bilateral common femoral, superficial femoral, popliteal and posterior tibial and peroneal veins, at the time of examination. 2. Bilateral leg and calf edema limiting the visualization of the veins. 3. Bilateral Popliteal fossa complex areas are seen likely complex Dowling's cyst. 4. Bilateral inguinal enlarged lymph nodes. 5. Clinical correlation is advised. Disclaimer: DVT could be missed early in the disease when clot burden is minimal. For patients with moderate and high pretest probability of DVT and negative ultrasound, the [employer] clinical guidelines recommend testing with a D-dimer assay or repeat ultrasound in 5-7 days. If symptoms worsen, the Society of radiologists in ultrasound recommends repeating ultrasound even earlier. Electronically signed by Moreno Chan 09-14-2024 02:59 AM Code Status & VTE Plan Code Status Full code VTE Prophylaxis Plan VTE Prophylaxis will be ordered: Yes PG Care Time/CCT Total # of Minutes Spent Total Time Spent with Patient: Total time spent is greater than 50% in coordination of care (as documented) at patient's floor/unit and/or counseling patient: Coding Level of Care Code 06421 INT INP/OBS CARE 3/75MIN Diagnoses Other osteomyelitis of right foot M86.8X7 Osteomyelitis type: other CKD stage 3b, GFR 30-44 ml/min N18.32 Diabetes mellitus E11.9 Hypertension I10 PAD (peripheral artery disease) I73.9 Anemia in chronic kidney disease (CKD) N18.9; D63.1 (1) Osteomyelitis of right foot Osteomyelitis type: other Qualified Code(s): M86.8X7 - Other osteomyelitis, ankle and foot
[2024-09-14] MEDS: SEVELAMER CARBONATE 800 MG TAB PO STA (01:57)
[2024-09-14] MEDS: SODIUM BICARBONATE 650 MG TAB PO STA (01:57)
[2024-09-14] MEDS: ATORVASTATIN 10 MG TAB PO STA (01:57)
[2024-09-14] MEDS: TAMSULOSIN HCL 0.4 MG CAP PO STA (01:57)
[2024-09-14] MEDS: METOPROLOL SUCC 25MG EXT REL TAB PO STA (01:57)
[2024-09-14] MEDS: LANTUS PER UNIT CHARGE SQ STA (01:58)
[2024-09-14] MEDS ORDERED: DEXTROSE 50% 50 ML SYRINGE IV PRN (02:29)
[2024-09-14] MEDS ORDERED: ONDANSETRON INJ 2 MG/ML 2 ML VIAL IV PRN ×2 (02:29→12:57)
[2024-09-14] MEDS ORDERED: GLUCOSE 10 TAB/TUBE PO PRN (02:29)
[2024-09-14] MEDS ORDERED: CARBOHYDRATES FOR HYPOGLYCEMIA PO PRN (02:29)
[2024-09-14] MEDS ORDERED: GLUCAGON FOR INJ 1 MG VIAL SQ PRN (02:29)
[2024-09-14] MEDS ORDERED: GLUCOSE 40% GEL 15 GM TUBE PO PRN (02:29)
[2024-09-14] MEDS: ZOLPIDEM TARTRATE 5 MG TAB PO PRN (02:49)
--- NOTE | 2024-09-14 03:00 | Ultrasound Report ---
EXAM: US venous doppler LE BI CLINICAL HISTORY: HX: No prev. Right foot infection. B/L LE swelling. H/O DVT per pt. TECH NOTES TO RADIOLOGIST (not to be included in final report): No obvious DVT B/L LE. Edema B/L calves, limiting vis. Complex collections bilateral pop fossa, reza: RT pop fossa: 6.3 x 1.2x 4.1 cm. LT pop fossa: 9.3 x 1.8 x 4.2 cm. Prominent probably lymph nodes bilat groin reza: RT groin: 6.1 x 1.5 x 3.8 cm LT groin : 4.5 x 0.7 x 1.7 cm TECHNIQUE: Ultrasound examination of bilateral lower extremity veins was performed in real time and duplex. One or more of the following were performed- spectral analysis, resistive index, waveform analysis, and pulsed Doppler. COMPARISON: None. FINDINGS: Normal phasic, non-pulsatile, and spontaneous flow is noted in bilateral GSV, common femoral, superficial femoral, popliteal and posterior tibial and peroneal veins. Visualized veins of both lower extremities demonstrate normal compressibility. No sonographic evidence of acute deep vein thrombosis (DVT) is detected in the visualized veins of both lower extremities. Compression and Augmentation: All evaluated veins compress fully with applied transducer pressure. Augmentation of venous flow is noted with distal compression. Additional Findings: No evidence of intraluminal thrombus. Bilateral leg and calf edema limiting the visualization of the veins. Complex area is seen at the right popliteal fossa measuring 6.3 x 1.2 x 4.1 cm. A similar complex area is seen at the left popliteal fossa measuring 9.3 x 1.8 x 4.2 cm. Enlarged lymph nodes were seen at the bilateral inguinal areas measuring at the right side 6.1 x 1.5 x 3.8 cm, and the left inguinal region measuring 4.5 x 0.7 x 1.7 cm. IMPRESSION: 1. No sonographic evidence of acute DVT is detected in bilateral common femoral, superficial femoral, popliteal and posterior tibial and peroneal veins, at the time of examination. 2. Bilateral leg and calf edema limiting the visualization of the veins. 3. Bilateral Popliteal fossa complex areas are seen likely complex Dowling's cyst. 4. Bilateral inguinal enlarged lymph nodes. 5. Clinical correlation is advised. Disclaimer: DVT could be missed early in the disease when clot burden is minimal. For patients with moderate and high pretest probability of DVT and negative ultrasound, the [employer] clinical guidelines recommend testing with a D-dimer assay or repeat ultrasound in 5-7 days. If symptoms worsen, the Society of radiologists in ultrasound recommends repeating ultrasound even earlier. Electronically signed by Moreno Chan 09-14-2024 02:59 AM
--- NOTE | 2024-09-14 03:02 | Ultrasound Report ---
EXAM: US arterial duplex LE BI CLINICAL HISTORY: HX: no previous. right foot infection. H/O PAD per patient TECHNIQUE: Ultrasound examination of the bilateral lower extremities arteries with no ankle brachial indices performed. One or more of the following were performed- spectral analysis, resistive index, waveform analysis, and pulsed Doppler. COMPARISON: None. FINDINGS: Vessel Flow Pattern Right Peak Velocity Right (cm/sec) Flow Pattern Left Peak Velocity Left (cm/sec) Common Femoral Artery (SOCCER REFEREE) Triphasic 127 Triphasic 147 Deep Femoral Artery (DPA) Triphasic 66 Triphasic 97 Superficial Femoral Artery (SFA) Triphasic Proximal: 127. Mid: 101. Distal: 105. Triphasic Proximal: 148. Mid: 116. Distal: 104. Popliteal Artery (POP A) Triphasic Proximal: 90. Mid: 92. Distal: 90. Triphasic Proximal: 104. Distal: 99. Posterior Tibial Artery (SCREW SUPERVISOR), proximal Triphasic prox:117 mid:204 pre-sten:133 at sten:209 post-sten:142 dist:114 Triphasic prox:54 mid:39 dist: 115 Peroneal artery Triphasic Proximal:31 Mid: 36. Distal: 44. Triphasic Proximal:56 Mid: 88. Distal: 63. Anterior tibial artery CHRISTY Triphasic Proximal: 126. Mid: 66. Distal: 100. Triphasic Proximal: 71. Mid: 100. Distal: 99. Dorsalis Pedis Artery (DPA) Triphasic 144 Triphasic 96 Triphasic waveform seen throughout bilateral lower limb arteries. Multiple small mural plaques seen throughout the arteries of both lower extremities. Increased peak systolic velocities of the right posterior tibial artery measuring 209 cm/s suggesting 50 to 70% stenosis. No other hemodynamically significant stenosis is noted in the arteries of both lower extremities. The peak systolic velocities are within normal limit bilaterally. Collateral Circulation: Evaluation of collateral vessels: None. No significant collateral circulation noted indicative of chronic arterial occlusion. Additional Findings: Edema seen in both calves limiting the visualization of calf vessels. IMPRESSION: 1. Multiple small mural plaques seen throughout the arteries of both lower extremities. 2. Increased peak systolic velocities of the right posterior tibial artery measuring 209 cm/s suggesting 50 to 70% stenosis. 3. Edema seen in both calves limiting the visualization of calf vessels. 4. No other hemodynamically significant stenosis is noted in the arteries of both lower extremities. Electronically signed by Moreno Chan 09-14-2024 03:02 AM
[2024-09-14] MEDS: INSULIN ASPART PER UNIT CHARGE SC SCH ×2 (05:54→18:40)
[2024-09-14 07:27] LABS: Basophils # (auto) 0.02 K/uL (0.00-0.20); Basophils % (auto) 0.4 %; Eosinophils # (auto) 0.15 K/uL (0.00-0.50); Eosinophils % (auto) 2.9 %; Hemoglobin 7.6 g/dl (14.0-18.0); Immature Granulocytes # (auto) 0.03 K/uL (0.01-0.20); Immature Granulocytes % (auto) 0.6 %; Lymphocytes # (auto) 0.53 K/uL (1.20-3.40); Lymphocytes % (auto) 10.1 %; Mean Corpuscular Hemoglobin 27.6 pg (25.0-34.0); Mean Corpuscular Hgb Conc 31.7 g/dL (32.0-36.0); Mean Corpuscular Volume 87.3 fL (80.0-100.0); Mean Platelet Volume 8.6 fL (9.4-12.4); Monocytes # (auto) 0.49 K/uL (0.11-0.59); Monocytes % (auto) 9.3 %; Neutrophils # (auto) 4.04 K/uL (1.40-6.50); Neutrophils % (auto) 76.7 %; Platelet Count 166 K/uL (130-400); RDW Coefficient of Variation 15.2 % (11.5-14.5); RDW Standard Deviation 48.1 fL (36.4-46.3); Red Blood Count 2.75 M/uL (4.70-6.10); White Blood Count 5.26 K/ul (4.8-10.8)
[2024-09-14 07:41] LABS: Estimated Average Glucose 154 mg/dl
[2024-09-14 07:57] LABS: Appearance Urine Clear (Clear); Bacteria Urine Automated None Seen (None Seen); Bilirubin Urine Negative (Negative); Blood Urine Negative (Negative); Cast Urine Automated 0-2 /lpf (0-2); Color Urine Yellow; Epithelial Cell Urine Auto 0-2 /hpf (0-2); Glucose Urine UA Negative (Negative); Ketones Urine Negative (Negative); Leukocyte Esterase Urine Negative (Negative); Nitrite Urine Negative (Negative); Protein Urine Trace (Negative); RBC Urine Automated 0-2 /hpf (0-2); Specific Gravity Urine 1.014 (1.000-1.030); Urobilinogen Urine Negative (Negative); WBC Urine Automated 0-5 /hpf (0-5)
[2024-09-14 07:58] LABS: INR 1.1 (0.9-1.1); Partial Thromboplastin Ratio 1.2; Partial Thromboplastin Time 32 Seconds (21-31); Prothrombin Time 11.8 Seconds (9.0-12.0)
[2024-09-14 08:04] LABS: Albumin Globulin Ratio 1.2 (0.9-2); Albumin Level 3.7 gm/dl (3.4-5.0); Bilirubin,Total 0.7 mg/dl (0.2-1.0); Calcium 9.9 mg/dl (8.6-10.3); Creatinine Clr Calc Pharmacy 41.9 ml/min; Hypochromasia Present; Polychromasia 1+; Tear Drop Cells 1+; Total Protein 6.7 gm/dl (6.0-8.3)
[2024-09-14] MEDS: CEFEPIME 2000MG 2,000 MG/20 ML SYR IV SCH (08:37)
[2024-09-14] MEDS: FLUTICASONE PROPIONATE NA SPR 16 GM BTL NAE SCH (08:38)
[2024-09-14] MEDS: LANTUS PER UNIT CHARGE SQ SCH ×2 (08:38→21:39)
[2024-09-14] MEDS: LINEZOLID 600 MG/300 ML BAG IV SCH (08:38)
[2024-09-14] MEDS: SEVELAMER CARBONATE 800 MG TAB PO SCH (08:39)
[2024-09-14] MEDS: hydrALAZINE TAB 50 MG TAB PO SCH (08:39)
[2024-09-14] MEDS: SODIUM BICARBONATE 650 MG TAB PO SCH (08:39)
[2024-09-14] MEDS: IRON POLYSACCHARIDE COMPLEX 150 MG CAPSULE PO SCH (08:39)
[2024-09-14] MEDS: amLODIPine BESYLATE 5 MG TAB PO SCH (08:39)
--- NOTE | 2024-09-14 08:39 | Electrocardiogram Report ---
Test Reason : Blood Pressure : */* mmHG Vent. Rate : 94 BPM Atrial Rate : 93 BPM P-R Int : 208 ms QRS Dur : 94 ms QT Int : 370 ms P-R-T Axes : 110 42 39 degrees QTcB Int : 462 ms Probable Atrial flutter with variable A-V block Abnormal ECG No previous ECGs available Confirmed by Raymundo Ashley ([id number]) on 09/14/2024 8:39:13 AM Referred By: REFERRED SELF Confirmed By: Raymundo Ashley
--- NOTE | 2024-09-14 08:46 | Nephrology Consultation ---
Date of Consultation September 14, 2024 Assessment & Plan (1) CKD stage 3b, GFR 30-44 ml/min: * Baseline Cr unknown * Nephrology records from 07/27 [facility] hospitalization have been requested * Patient appears euvolemic. Cr 2.2 this am. Electrolyte balance is acceptable. No acute indication for HD today * Urinalysis w/ trace protein. Urine sediment negative for blood. Only hyaline casts reported * Will obtain renal US, MACR * Clinically suspect vancomycin associated JENNIFER * Monitor BMP, UO (2) Osteomyelitis of right foot: * 09/13/[address] - probable abscess plantar midfoot (3) Diabetes mellitus: * Longstanding AODM. No h/o retinopathy/neuropathy. Not on ERIN/ARB/SGLT2i/GLP- 1 prior to hospitalization (4) Anemia in chronic kidney disease (CKD): * Anemia likely related to inflammation * Will order iron studies, FOBT * Consider blood transfusion for Hgb < 7.0, symptoms (5) Vancomycin adverse reaction: History of Present Illness Reason for Consultation: JENNIFER/CKD Attending Physician: Wallace Loya History of Present Illness Mr. Sales is a 69 year old white male who was seen at the request of the [facility] hospitalist service for evaluation of JENNIFER/CKD. Information for the HPI is obtained from direct patient interview and review of the EMR. HPI is summarized as follows: Mr. Sales resides in [place], [place]. His PCP is Dr. Jag Castellon. His medical history is significant for longstanding AODM (no retinopathy or neuropathy), HTN, BPH, R calf DVT and C. difficile colitis. He denies any prior h/o CKD and had not undergone nephrology outpatient evaluation in the past. His baseline Cr is unknown. Mr. Sales reports development of a R foot ulcer summer 2023. He underwent podiatric care that subsequently became infected. Mr. Sales was hospitalized at [facility] 04/26,.diagnosed w/ osteomyelitis and treated w/ 6 weeks IV antibiotic therapy including vancomycin. He reports a rash related to the medication. He was readmitted to [facility] 07/27 w/ JENNIFER and cared for by Dr. Benjamin. The patient states that he was diagnosed w/ vancomycin nephrotoxicity and did not require kidney biopsy or HD. He is uncertain what his creatinine value was during the hospitalization or at the time of discharge but does report good UO. Medical records have been requested from [facility]. Mr. Sales denies the use of NSAIDS, herbal supplements or recent exposure to IV contrast. Review of his outpatient medication list reveals that he has not recently been taking ERIN or ARB therapy. Mr. Sales presented to [facility] last evening w/ recurrent R foot infection. [facility] was "standing room only" and he chose to travel to [facility] for evaluation and "2nd opinion". Admission laboratory studies reveals Hgb 7.6, Cr 2.35. Allergies Allergy/AdvReac Type Severity Reaction Status Date / Time vancomycin AdvReac caused Verified 09/13/24 22:47 kidney failure Home Medications Medication Instructions Recorded Confirmed Type amlodipine 10 mg tablet 10 mg PO QAM 09/13/24 09/13/24 History atorvastatin 10 mg tablet 10 mg PO HS 09/13/24 09/13/24 History epoetin josselin 20,000 unit/mL 20,000 unit .EVERY OTHER WEEK 09/13/24 09/13/24 History injection solution (Procrit) ergocalciferol (vitamin D2) 1,250 1,250 mcg PO WK 09/13/24 09/13/24 History mcg (50,000 unit) capsule fluticasone propionate 50 2 spray intranasal DAILY 09/13/24 09/13/24 History mcg/actuation nasal spray,suspension furosemide 40 mg tablet 40 mg PO DAILY PRN swelling 09/13/24 09/13/24 History hydralazine 50 mg tablet 50 mg PO AMHS 09/13/24 09/13/24 History insulin glargine 100 unit/mL (3 30 unit subcut [facility] 09/13/24 09/13/24 History mL) subcutaneous pen (Lantus Solostar U-100 Insulin) metoprolol succinate 25 mg 25 mg PO QPM 09/13/24 09/13/24 History tablet,extended release 24 hr polysaccharide iron complex 150 mg 150 mg PO QAM 09/13/24 09/13/24 History iron capsule sevelamer HCl 800 mg tablet 800 mg PO BIDM 09/13/24 09/13/24 History sodium bicarbonate 650 mg tablet 650 mg PO TID 09/13/24 09/13/24 History tamsulosin 0.4 mg capsule 0.4 mg PO HS 09/13/24 09/13/24 History zolpidem 10 mg tablet 10 mg PO HS PRN Sleep 09/13/24 09/13/24 History Patient History Medical History Vancomycin adverse reaction History of Clostridioides difficile colitis History of deep venous thrombosis (DVT) of distal vein of right lower extremity Social History Smoking Status: Never smoker Hx Alcohol Use: No Hx Substance Use: No Preferred Language: Malaysian Communication Ability: Effective Senior Genetic Counselor Required: No Beliefs That Will Affect Care: None Current Living Situation: Family Current Living Situation Comment: With daughter Ayla Other Information That Helps Us Care for You: No Feels Safe at Home: Yes Safety Concerns: Feels Safe At This Time Assistive Devices: Cane and Glasses Review of Systems Constitutional: no fever Eyes: no problem reported Ear, Nose, Mouth, Throat: no problem reported Respiratory: no cough and no dyspnea Cardiovascular: no chest pain Gastrointestinal: no abdominal pain, no nausea, no vomiting and no diarrhea/loose stools Genitourinary: no dysuria, no hematuria or no flank pain Integumentary: no rash Neurologic: no problem reported Physical Exam Constitutional: not in distress Eyes: PERRL, conjunctivae normal, anicteric sclerae ENMT: Mouth: + dry oral mucous membranes Neck: trachea midline, no thyromegaly Respiratory: normal respiratory effort, lungs clear to auscultation Cardiovascular: RRR, no murmur, no edema Gastrointestinal (Abdomen): normal bowel sounds, soft, nontender, no hepatosplenomegaly Musculoskeletal: Extremities: + foot abnormality Right (fluctuant lesion plantar surface R foot) Skin: no rashes, warm and dry Neurologic: awake; not confused Results & Data Vital Signs (Past 12 Hours) Vital Signs Temp Pulse Pulse Resp BP BP Pulse Ox 09/14/24 07:46 36.3 C L 18 149/75 H 92 09/14/24 07:26 82 09/14/24 03:05 36.5 C 87 18 163/81 H 94 09/14/24 02:30 85 09/14/24 02:29 36.5 C 87 18 163/81 H 94 09/14/24 02:11 36.7 C 88 17 128/73 98 09/13/24 23:00 88 18 143/96 H 93 09/13/24 21:28 83 09/13/24 21:19 84 23 95 09/13/24 21:19 95 09/13/24 21:19 80 19 141/79 H 94 O2 Del Method 09/14/24 07:46 Room Air 09/14/24 07:26 09/14/24 03:05 Room Air 09/14/24 02:30 09/14/24 02:29 Room Air 09/14/24 02:11 Room Air 09/13/24 23:00 Room Air 09/13/24 21:28 09/13/24 21:19 Room Air 09/13/24 21:19 Room Air 09/13/24 21:19 Room Air Laboratory Results Laboratory Results WBC 5.26 K/ul (4.8-10.8) 09/14/24 07:06 RBC 2.75 M/uL (4.70-6.10) L 09/14/24 07:06 Hgb 7.6 g/dl (14.0-18.0) L 09/14/24 07:06 Hct 24.0 % (42.0-52.0) L 09/14/24 07:06 MCV 87.3 fL (80.0-100.0) 09/14/24 07:06 MCH 27.6 pg (25.0-34.0) 09/14/24 07:06 MCHC 31.7 g/dL (32.0-36.0) L 09/14/24 07:06 RDW Std Deviation 48.1 fL (36.4-46.3) H 09/14/24 07:06 RDW Coeff of Mark 15.2 % (11.5-14.5) H 09/14/24 07:06 Plt Count 166 K/uL (130-400) 09/14/24 07:06 MPV 8.6 fL (9.4-12.4) L 09/14/24 07:06 Immature Gran % (Auto) 0.6 % 09/14/24 07:06 Neut % (Auto) 76.7 % 09/14/24 07:06 Lymph % (Auto) 10.1 % 09/14/24 07:06 [place] % (Auto) 9.3 % 09/14/24 07:06 Eos % (Auto) 2.9 % 09/14/24 07:06 Baso % (Auto) 0.4 % 09/14/24 07:06 Neut # (Auto) 4.04 K/uL (1.40-6.50) 09/14/24 07:06 Lymph # (Auto) 0.53 K/uL (1.20-3.40) L 09/14/24 07:06 [place] # (Auto) 0.49 K/uL (0.11-0.59) 09/14/24 07:06 Eos # (Auto) 0.15 K/uL (0.00-0.50) 09/14/24 07:06 Baso # (Auto) 0.02 K/uL (0.00-0.20) 09/14/24 07:06 Immature Gran # (Auto) 0.03 K/uL (0.01-0.20) 09/14/24 07:06 Polychromasia 1+ 09/14/24 07:06 Hypochromasia Present 09/14/24 07:06 Tear Drop Cells 1+ 09/14/24 07:06 PT 11.8 Seconds (9.0-12.0) 09/14/24 07:06 INR 1.1 (0.9-1.1) 09/14/24 07:06 APTT 32 Seconds (21-31) H 09/14/24 07:06 PTT Ratio 1.2 09/14/24 07:06 Sodium 137 mmol/L (136-145) 09/14/24 07:06 Potassium 4.0 mmol/L (3.5-5.1) 09/14/24 07:06 Chloride 106 mmol/L (98-107) 09/14/24 07:06 Carbon Dioxide 24 mmol/L (21-32) 09/14/24 07:06 Anion Gap 7 (3-11) 09/14/24 07:06 BUN 51 mg/dl (6-23) H 09/14/24 07:06 Creatinine 2.22 mg/dl (0.6-1.4) H 09/14/24 07:06 Est Cr Clr Drug Dosing 41.9 ml/min 09/14/24 07:06 eGFR 31.29 09/14/24 07:06 BUN/Creatinine Ratio 23.0 (10-20) H 09/14/24 07:06 Glucose 131 mg/dl (70-99(Fasting)) H 09/14/24 07:06 POC Glucose 151 mg/dl (70-99) H 09/14/24 05:49 Estimat Average Glucose 154 mg/dl 09/14/24 07:06 Hemoglobin A1c 7.0 % (4.5-5.6) H 09/14/24 07:06 Lactate 0.9 mmol/L (0.4-2.0) 09/13/24 18:55 Calcium 9.9 mg/dl (8.6-10.3) 09/14/24 07:06 Magnesium 2.0 mg/dl (1.7-2.4) 09/14/24 07:06 Total Bilirubin 0.7 mg/dl (0.2-1.0) 09/14/24 07:06 AST 21 U/L (13-39) 09/14/24 07:06 ALT 27 U/L (7-52) 09/14/24 07:06 Alkaline Phosphatase 167 U/L (34-104) H 09/14/24 07:06 Troponin I High Sens 17.9 pg/ml (0-20) 09/13/24 18:55 Total Protein 6.7 gm/dl (6.0-8.3) 09/14/24 07:06 Albumin 3.7 gm/dl (3.4-5.0) 09/14/24 07:06 Globulin 3.0 gm/dl (2.5-4.0) 09/14/24 07:06 Albumin/Globulin Ratio 1.2 (0.9-2) 09/14/24 07:06 Procalcitonin 0.29 ng/ml (0-0.5) 09/13/24 18:55 Urine Color Yellow 09/14/24 Unknown Urine Appearance Clear (Clear) 09/14/24 Unknown Urine pH 5.0 (4.5-7.5) 09/14/24 Unknown Ur Specific [place] 1.014 (1.000-1.030) 09/14/24 Unknown Urine Protein Trace (Negative) H 09/14/24 Unknown Urine Glucose (UA) Negative (Negative) 09/14/24 Unknown Urine Ketones Negative (Negative) 09/14/24 Unknown Urine Blood Negative (Negative) 09/14/24 Unknown Urine Nitrite Negative (Negative) 09/14/24 Unknown Urine Bilirubin Negative (Negative) 09/14/24 Unknown Urine Urobilinogen Negative (Negative) 09/14/24 Unknown Ur Leukocyte Esterase Negative (Negative) 09/14/24 Unknown Urine WBC (Auto) 0-5 /hpf (0-5) 09/14/24 Unknown Urine RBC (Auto) 0-2 /hpf (0-2) 09/14/24 Unknown U Hyaline Cast (Auto) 0-2 /lpf (0-2) 09/14/24 Unknown U Epithel Cells (Auto) 0-2 /hpf (0-2) 09/14/24 Unknown Urine Bacteria (Auto) None Seen (None Seen) 09/14/24 Unknown Impressions Chest X-Ray 09/13/24 18:35 Exam(s): XR CXR 1 VIEW EXAM: XR Chest, 1 View CLINICAL HISTORY: Reason for exam: Sepsis. TECHNIQUE: Frontal view of the chest. COMPARISON: No relevant prior studies available. FINDINGS: Lungs: Perihilar peribronchial thickening as can be seen in the setting of infection or bronchitis. Pleural space: No pleural effusion. No pneumothorax. Heart: Unremarkable. No cardiomegaly. IMPRESSION: Perihilar peribronchial thickening as can be seen in the setting of infection or bronchitis. Electronically signed by: Presley Mata MD 09/13/24 20:[address] 09/13/24 20:31 Exam(s): CT RIGHT FOOT Without Contrast EXAM: CT Right Lower Extremity Without Intravenous Contrast, Foot CLINICAL HISTORY: Reason for exam: wound, ?osteomyelitis. TECHNIQUE: Axial computed tomography images of the right foot without intravenous contrast. CTDI is 25.05 mGy and DLP is 563.14 mGy-cm. Automated exposure control was utilized for the study. A dose lowering technique was utilized adhering to the principles of ALARA. COMPARISON: No relevant prior studies available. FINDINGS/IMPRESSION: Extensive destructive changes throughout the midfoot, TMT joints, subtalar joint, and to lesser degree at the ankle. Midfoot collapse. Extensive soft tissue edema. Fluid collection likely infiltrating throughout the midfoot. Superficial fluid collection and ulceration along the medial aspect of the plantar midfoot. Concerning for abscess. Electronically signed by: Presley Mata MD 09/13/24 21:47 PM Duplex Scan Lower Extremity Artery 09/13/24 23:25 EXAM: US arterial duplex LE BI CLINICAL HISTORY: HX: no previous. right foot infection. H/O PAD per patient TECHNIQUE: Ultrasound examination of the bilateral lower extremities arteries with no ankle brachial indices performed. One or more of the following were performed- spectral analysis, resistive index, waveform analysis, and pulsed Doppler. COMPARISON: None. FINDINGS: Vessel Flow Pattern Right Peak Velocity Right (cm/sec) Flow Pattern Left Peak Velocity Left (cm/sec) Common Femoral Artery (MANUFACTURING PLANT TECHNICIAN) Triphasic 127 Triphasic 147 Deep Femoral Artery (DPA) Triphasic 66 Triphasic 97 Superficial Femoral Artery (SFA) Triphasic Proximal: 127. Mid: 101. Distal: 105. Triphasic Proximal: 148. Mid: 116. Distal: 104. Popliteal Artery (POP A) Triphasic Proximal: 90. Mid: 92. Distal: 90. Triphasic Proximal: 104. Distal: 99. Posterior Tibial Artery (CAM[employer]A STORAGE CLERK), proximal Triphasic prox:117 mid:204 pre-sten:133 at sten:209 post-sten:142 dist:114 Triphasic prox:54 mid:39 dist: 115 Peroneal artery Triphasic Proximal:31 Mid: 36. Distal: 44. Triphasic Proximal:56 Mid: 88. Distal: 63. Anterior tibial artery CHRISTY Triphasic Proximal: 126. Mid: 66. Distal: 100. Triphasic Proximal: 71. Mid: 100. Distal: 99. Dorsalis Pedis Artery (DPA) Triphasic 144 Triphasic 96 Triphasic waveform seen throughout bilateral lower limb arteries. Multiple small mural plaques seen throughout the arteries of both lower extremities. Increased peak systolic velocities of the right posterior tibial artery measuring 209 cm/s suggesting 50 to 70% stenosis. No other hemodynamically significant stenosis is noted in the arteries of both lower extremities. The peak systolic velocities are within normal limit bilaterally. Collateral Circulation: Evaluation of collateral vessels: None. No significant collateral circulation noted indicative of chronic arterial occlusion. Additional Findings: Edema seen in both calves limiting the visualization of calf vessels. IMPRESSION: 1. Multiple small mural plaques seen throughout the arteries of both lower extremities. 2. Increased peak systolic velocities of the right posterior tibial artery measuring 209 cm/s suggesting 50 to 70% stenosis. 3. Edema seen in both calves limiting the visualization of calf vessels. 4. No other hemodynamically significant stenosis is noted in the arteries of both lower extremities. Electronically signed by Moreno Chan 09-14-2024 03:02 AM Venous Doppler Study 09/13/24 23:25 EXAM: US venous doppler LE BI CLINICAL HISTORY: HX: No prev. Right foot infection. B/L LE swelling. H/O DVT per pt. TECH NOTES TO RADIOLOGIST (not to be included in final report): No obvious DVT B/L LE. Edema B/L calves, limiting vis. Complex collections bilateral pop fossa, reza: RT pop fossa: 6.3 x 1.2x 4.1 cm. LT pop fossa: 9.3 x 1.8 x 4.2 cm. Prominent probably lymph nodes bilat groin reza: RT groin: 6.1 x 1.5 x 3.8 cm LT groin : 4.5 x 0.7 x 1.7 cm TECHNIQUE: Ultrasound examination of bilateral lower extremity veins was performed in real time and duplex. One or more of the following were performed- spectral analysis, resistive index, waveform analysis, and pulsed Doppler. COMPARISON: None. FINDINGS: Normal phasic, non-pulsatile, and spontaneous flow is noted in bilateral GSV, common femoral, superficial femoral, popliteal and posterior tibial and peroneal veins. Visualized veins of both lower extremities demonstrate normal compressibility. No sonographic evidence of acute deep vein thrombosis (DVT) is detected in the visualized veins of both lower extremities. Compression and Augmentation: All evaluated veins compress fully with applied transducer pressure. Augmentation of venous flow is noted with distal compression. Additional Findings: No evidence of intraluminal thrombus. Bilateral leg and calf edema limiting the visualization of the veins. Complex area is seen at the right popliteal fossa measuring 6.3 x 1.2 x 4.1 cm. A similar complex area is seen at the left popliteal fossa measuring 9.3 x 1.8 x 4.2 cm. Enlarged lymph nodes were seen at the bilateral inguinal areas measuring at the right side 6.1 x 1.5 x 3.8 cm, and the left inguinal region measuring 4.5 x 0.7 x 1.7 cm. IMPRESSION: 1. No sonographic evidence of acute DVT is detected in bilateral common femoral, superficial femoral, popliteal and posterior tibial and peroneal veins, at the time of examination. 2. Bilateral leg and calf edema limiting the visualization of the veins. 3. Bilateral Popliteal fossa complex areas are seen likely complex Dowling's cyst. 4. Bilateral inguinal enlarged lymph nodes. 5. Clinical correlation is advised. Disclaimer: DVT could be missed early in the disease when clot burden is minimal. For patients with moderate and high pretest probability of DVT and negative ultrasound, the [employer] clinical guidelines recommend testing with a D-dimer assay or repeat ultrasound in 5-7 days. If symptoms worsen, the Society of radiologists in ultrasound recommends repeating ultrasound even earlier. Electronically signed by Moreno Chan 09-14-2024 02:59 AM PG Care Time/CCT Total # of Minutes Spent Total Time Spent with Patient: Total time spent is greater than 50% in coordination of care (as documented) at patient's floor/unit and/or counseling patient: Coding Level of Care Code 48139 IN/OBS CONSULT LVL 5,80M Diagnoses CKD stage 3b, GFR 30-44 ml/min N18.32 Other osteomyelitis of right foot M86.8X7 Osteomyelitis type: other Diabetes mellitus E11.9 Anemia in chronic kidney disease (CKD) N18.9; D63.1 Vancomycin adverse reaction T36.8X5A (2) Osteomyelitis of right foot Osteomyelitis type: other Qualified Code(s): M86.8X7 - Other osteomyelitis, ankle and foot
[2024-09-14] MEDS ORDERED: PHARMACY GLYCEMIC MGMT CONSULT PRN (11:01)
--- NOTE | 2024-09-14 11:30 | Pharmacy Report ---
Pharmacy Glycemic Short Note 2 - Date of Service September 14, 2024 - Glycemic Short BSG Results (Last 24 hours): 09/13/24 09/13/24 09/14/24 18:55 23:29 05:49 Glucose 187 H POC Glucose 198 H 151 H 09/14/24 07:06 Glucose 131 H POC Glucose OUTPATIENT ANTIDIABETIC REGIMEN: * Lantus 30 units bid ASSESSMENT: * 69 year old admitted with foot osteomyelitis. Previously treated per notes with IV antibiotics. Pharmacy consulted for glycemic management. Patient with potential JENNIFER, unclear however of baseline renal function - nephrology consulted. Patient started on Lantus 15 units bid, NPO this morning. Reasonable to continue current regimen, may adjust evening basal dose 10-15 units depending on blood sugar value. PLAN FOR INPATIENT GLYCEMIC CONTROL: * Hold outpatient oral diabetes medications * Basal insulin * Lantus 10-15 units SQ BID * Bolus insulin * NovoLog per scale ACHS or Q6hrs while NPO * Goal Range: Low 110 mg/dL - High 140 mg/dL * Correction Factor: 25 mg/dL/unit * Nutritional / Prandial insulin per carb ratio of 1 unit per 10 grams CHO consumed
--- NOTE | 2024-09-14 11:36 | Ultrasound Report ---
RENAL ULTRASOUND HISTORY: Chronic renal disease CKD COMPARISON: None. FINDINGS: Right kidney: 12.1 cm. No hydronephrosis. 1 cm cyst of the interpolar kidney. Normal corticomedullary differentiation and cortical thickness. Left kidney: 12.6 cm. No hydronephrosis. Normal corticomedullary differentiation and cortical thickne ss. Bladder: Urinary bladder wall thickening with partial distention. Only the right ureteral jet is iden tified. Prostatomegaly. Spleen is enlarged measuring 17 cm. IMPRESSION: 1. No renal calculi or hydronephrosis identified. 2. Prostatomegaly with evidence of chronic outlet obstruction. 3. Incidental note is made of splenomegaly. ACT 112: Negative or not required by law. Electronically signed by: Hector Taylor M.D. 09/14/2024 11:35 AM
[2024-09-14] MEDS ORDERED: LIDOCAINE 2% 2 ML VIAL/AMP(20MG/ML) INFIL ONE (12:10)
[2024-09-14] MEDS ORDERED: PROPOFOL IV EMULSION 10 MG/ML 20 ML VIAL IV ONE ×2 (12:10→12:37)
--- NOTE | 2024-09-14 12:25 | Podiatry Consultation ---
Date of Consultation September 14, 2024 Assessment & Plan (1) Osteomyelitis of right foot: Osteomyelitis type: other Qualified Code(s): M86.8X7 - Other osteomyelitis, ankle and foot (2) Diabetes mellitus: Diabetes mellitus type: type 2 Diabetes mellitus manager terminal insulin use: unspecified manager terminal insulin use status Diabetes mellitus complication status: with diabetic arthropathy Diabetes mellitus complication detail: with neuropathic arthropathy Qualified Code(s): E11.610 - Type 2 diabetes mellitus with diabetic neuropathic arthropathy (3) Charcot joint of right foot: Plan Patient was examined and evaluated. We discussed at length etiology and treatment of his right foot infection. Bedside I&D was performed and it was noted that he would likely benefit from a more extensive surgical debridement with bone biopsy. He was added on as a surgical case for this in a few hours. He is still n.p.o. and we will keep him that way until after surgery. The plan will be for an I&D with bone biopsy and packing the wound as necessary. We did discuss that salvaging this limb will be time-consuming and require extensive intervention but he is amenable to this and would like to consider these options. For now, we will attempt to definitively rule in or out osteomyelitis as a complicating factor. Patient understands and is amenable to this. History of Present Illness Reason for Consultation: Right foot osteomyelitis Attending Physician: Wallace Loya History of Present Illness Patient seen at bedside. He and his daughter state that he has developed Charcot neuroarthropathy over the last 10 years. More recently, he has developed ulcerations underlying the bony prominences of his right Charcot foot. He has been in and out of wound care since around January or February for this and has developed ulcerations of been difficult to heal. Now, in the last day he has noticed increased swelling and a drastic bulbous appearance to the right medial foot ulceration. This is what led them to seek treatment here. He is was admitted for this infection. He has previously performed 2 months of IV antibiotics and despite this the wound has remained. He denies any systemic signs or symptoms of infection but does admit to being n.p.o. since yesterday. Further, he denies any other recent medical history change. Allergies Allergy/AdvReac Type Severity Reaction Status Date / Time vancomycin AdvReac caused Verified 09/13/24 22:47 kidney failure Home Medications Medication Instructions Recorded Confirmed Type amlodipine 10 mg tablet 10 mg PO QAM 09/13/24 09/13/24 History atorvastatin 10 mg tablet 10 mg PO HS 09/13/24 09/13/24 History epoetin josselin 20,000 unit/mL 20,000 unit .EVERY OTHER WEEK 09/13/24 09/13/24 History injection solution (Procrit) ergocalciferol (vitamin D2) 1,250 1,250 mcg PO WK 09/13/24 09/13/24 History mcg (50,000 unit) capsule fluticasone propionate 50 2 spray intranasal DAILY 09/13/24 09/13/24 History mcg/actuation nasal spray,suspension furosemide 40 mg tablet 40 mg PO DAILY PRN swelling 09/13/24 09/13/24 History hydralazine 50 mg tablet 50 mg PO AMHS 09/13/24 09/13/24 History insulin glargine 100 unit/mL (3 30 unit subcut AMHS 09/13/24 09/13/24 History mL) subcutaneous pen (Lantus Solostar U-100 Insulin) metoprolol succinate 25 mg 25 mg PO QPM 09/13/24 09/13/24 History tablet,extended release 24 hr polysaccharide iron complex 150 mg 150 mg PO QAM 09/13/24 09/13/24 History iron capsule sevelamer HCl 800 mg tablet 800 mg PO BIDM 09/13/24 09/13/24 History sodium bicarbonate 650 mg tablet 650 mg PO TID 09/13/24 09/13/24 History tamsulosin 0.4 mg capsule 0.4 mg PO HS 09/13/24 09/13/24 History zolpidem 10 mg tablet 10 mg PO HS PRN Sleep 09/13/24 09/13/24 History Patient History Medical History Vancomycin adverse reaction History of Clostridioides difficile colitis History of deep venous thrombosis (DVT) of distal vein of right lower extremity Social History Smoking Status: Never smoker Hx Alcohol Use: No Hx Substance Use: No Preferred Language: Luxembourger Communication Ability: Effective Activity Aid Required: No Beliefs That Will Affect Care: None Current Living Situation: Family Current Living Situation Comment: With daughter Ayla Other Information That Helps Us Care for You: No Feels Safe at Home: Yes Safety Concerns: Feels Safe At This Time Assistive Devices: Cane and Glasses Review of Systems Review of Systems: All systems reviewed & are unremarkable except as noted in HPI & below Constitutional: + weakness; no fever, no chills and no f atigue Eyes: no problem reported Ear, Nose, Mouth, Throat: no problem reported Respiratory: no problem reported Cardiovascular: + edema; no problem reported Gastrointestinal: no nausea, no vomiting and no problem reported Musculoskeletal: + deformity, + swelling and + limited ra nge of motion; no problem reported Integumentary: + skin ulcer, + wounds and + erythema Neurologic: + unsteadiness, + loss of sensation, + n umbness and + paresthesia; no generalized weakness Psychiatric: no problem reported Physical Exam Physical Exam: Bilateral lower extremity focused exam: DP/PT pulses 1/4 bilaterally. CFT is brisk to the digits. No open wounds noted to the left foot. Mild Charcot neuroarthropathy noted to the left with a mild rocker-bottom deformity. On the right foot there is a extensive Charcot collapse, noted clinically and radiographically. This is at the level of the midfoot joints with extensive destruction of the midfoot complex. Underlying this, along the plantar medial arch there is a small 0.3 cm ulceration. There was a large tense, fluctuant blister filling the medial longitudinal arch. The blister measured 10 x 8 cm and was deroofed at bedside. There was around 50 cc of purulent drainage expressed and after this drainage, a second deep tissue injury was identified along the medial longitudinal arch. This was not further explored at this time. No ascending cellulitis is noted. There is extensive edema to the lower extremity otherwise. Protective sensation is absent no pain was noted on drainage of this lesion, though subjectively he admits to pain of the foot. Constitutional: WD/WN, vitals as above + ill appearing and + morbidly obese Eyes: PERRL, conjunctivae normal, anicteric sclerae ENMT: external ear and nose normal, oropharynx normal Neck: trachea midline, no thyromegaly normal visual inspection Respiratory: normal respiratory effort; no respiratory distress Cardiovascular: Rate/Rhythm: regular rate and regular rhythm Vessels: posterior tibial pulses present and dorsalis pedis pulses present Chest (Breasts): Chest: normal inspection of chest Gastrointestinal (Abdomen): Inspection/Auscultation: abdomen normal to inspection Percussion/Palpation: + abdomen tender and abdomen soft Musculoskeletal: no cyanosis or clubbing, extremities motor strength 5/5 Head/Neck/Chest: normocephalic and head atraumatic Extremities: extremities normal to inspection Skin: + ulcer, + wound, + skin atrophy, + fist ulous tract and + nails dystrophic Neurologic: awake; + abnormal sensation to monofilament and no focal motor deficits Psychiatric: A+Ox3, euthymic affect Results & Data Vital Signs (Past 12 Hours) Vital Signs Temp Pulse Pulse Resp BP BP Pulse Ox 09/14/24 11:29 36.6 C 18 156/75 H 92 09/14/24 07:46 36.3 C L 18 149/75 H 92 09/14/24 07:26 82 09/14/24 03:05 36.5 C 87 18 163/81 H 94 09/14/24 02:30 85 09/14/24 02:29 36.5 C 87 18 163/81 H 94 09/14/24 02:11 36.7 C 88 17 128/73 98 O2 Del Method 09/14/24 11:29 Room Air 09/14/24 07:46 Room Air 09/14/24 07:26 09/14/24 03:05 Room Air 09/14/24 02:30 09/14/24 02:29 Room Air 09/14/24 02:11 Room Air Diagnostic Findings CT scan of the right foot reveals significant Charcot neuroarthropathy with collapse of the midfoot. There is extensive bone destruction and apparent tunneling of the wound medially to the underlying bone. This exam is not able to exclude osteomyelitis in addition to the Charcot collapse.
[2024-09-14] MEDS ORDERED: HYDROmorphone INJ 1 MG/ML SYRINGE IV PRN (12:57)
[2024-09-14] MEDS ORDERED: ATROPINE SULFATE 0.1 MG/ML 10ML SYR IV PRN (12:57)
[2024-09-14] MEDS ORDERED: fentaNYL citrate PF 100 MCG/2 ML VIAL IV PRN (12:57)
[2024-09-14] MEDS ORDERED: ePHEDrine sulfate 50 MG/ML AMP IV PRN (12:57)
--- NOTE | 2024-09-14 12:57 | Anesthesiology Consultation ---
Date of Service September 14, 2024 Assessment & Plan ASA ASA3E Proposed Anesthesia Anesthesia Type: MAC Risk / Benefits Reviewed With: PT / POA / Parent / Guardian, Accepts Plan and Informed Consent Obtained History Surgery Operation Date: 09/14/24 14:50 Proposed Procedures p Right Foot Bone Biopsy and Incision and Drainage - Pernell La DPM Height/Weight Height: 6 ft 1 in Weight: 118.66 kg Allergies Allergy/AdvReac Type Severity Reaction Status Date / Time vancomycin AdvReac caused Verified 09/13/24 22:47 kidney failure Medications Home Medications Medication Instructions Recorded Confirmed Last Taken amlodipine 10 mg tablet 10 mg PO QAM 09/13/24 09/13/24 09/13/24 atorvastatin 10 mg tablet 10 mg PO HS 09/13/24 09/13/24 09/12/24 epoetin josselin 20,000 unit/mL 20,000 unit .EVERY OTHER WEEK 09/13/24 09/13/24 09/06/24 injection solution (Procrit) due ergocalciferol (vitamin D2) 1,250 1,250 mcg PO WK 09/13/24 09/13/24 09/11/24 mcg (50,000 unit) capsule fluticasone propionate 50 2 spray intranasal DAILY 09/13/24 09/13/24 09/13/24 mcg/actuation nasal spray,suspension furosemide 40 mg tablet 40 mg PO DAILY PRN swelling 09/13/24 09/13/24 09/13/24 hydralazine 50 mg tablet 50 mg PO AMHS 09/13/24 09/13/24 09/13/24 am insulin glargine 100 unit/mL (3 30 unit subcut AMHS 09/13/24 09/13/24 09/13/24 mL) subcutaneous pen (Lantus am Solostar U-100 Insulin) metoprolol succinate 25 mg 25 mg PO QPM 09/13/24 09/13/24 Unknown tablet,extended release 24 hr polysaccharide iron complex 150 mg 150 mg PO QAM 09/13/24 09/13/24 09/13/24 iron capsule sevelamer HCl 800 mg tablet 800 mg PO BIDM 09/13/24 09/13/24 09/13/24 am sodium bicarbonate 650 mg tablet 650 mg PO TID 09/13/24 09/13/24 09/13/24 am tamsulosin 0.4 mg capsule 0.4 mg PO HS 09/13/24 09/13/24 09/12/24 zolpidem 10 mg tablet 10 mg PO HS PRN Sleep 09/13/24 09/13/24 Unknown Active Medications Generic Name Dose Route Start Last Admin Trade Name Aryanq PRN Reason Stop Dose Admin Amlodipine Besylate 10 mg 09/14/24 09:00 09/14/24 08:39 Amlodipine Besylate 5 Mg Tab PO 10/14/24 08:59 10 mg QAM KARELY Administration Fluticasone Propionate 2 sprays 09/14/24 09:00 09/14/24 08:38 Fluticasone Propionate Na Spr 16 Gm Btl SHILOH 10/14/24 08:59 2 sprays DAILY KARELY Administration Hydralazine HCl 50 mg 09/14/24 09:00 09/14/24 08:39 Hydralazine Tab 50 Mg Tab PO 10/14/24 08:59 50 mg AMHS KARELY Administration Cefepime HCl 2,000 mg in 20 mls @ 5 mls/min 09/14/24 10:00 09/14/24 08:37 Maxipime 2000mg IV 09/21/24 09:59 5 mls/min Q12H KARELY Administration Protocol Linezolid 600 mg in 300 mls @ 300 mls/hr 09/14/24 10:00 09/14/24 09:44 Zyvox IV 09/21/24 09:59 Infused Q12H KARELY Infusion Insulin Aspart 0 units 09/14/24 06:00 09/14/24 12:01 Insulin Aspart Per Unit Charge SC 10/14/24 05:59 Not Given Q6 KARELY Polysaccharide Iron Complex 150 mg 09/14/24 09:00 09/14/24 08:39 Iron Polysaccharide Complex 150 Mg Capsule PO 10/14/24 08:59 150 mg QAM KARELY Administration Sevelamer Carbonate 800 mg 09/14/24 08:00 09/14/24 08:39 Sevelamer Carbonate 800 Mg Tab PO 10/14/24 07:59 800 mg BIDM KARELY Administration Sodium Bicarbonate 650 mg 09/14/24 09:00 09/14/24 08:39 Sodium Bicarbonate 650 Mg Tab PO 10/14/24 08:59 650 mg TID KARELY Administration Zolpidem Tartrate 10 mg 09/14/24 02:39 09/14/24 02:49 Zolpidem Tartrate 5 Mg Tab PO 10/14/24 02:38 10 mg HS PRN Administration Sleep Past Medical History Medical History Vancomycin adverse reaction History of Clostridioides difficile colitis History of deep venous thrombosis (DVT) of distal vein of right lower extremity Exercise / Class Metabolic Activity II 4-5 Yardwork/Stairs/Walk up hill Past Anesthesia History No Hx of Anesthesia Complications and No Family Hx of Anesthesia Complications History of PONV No Hx of PONV and No Hx of Motion Sickness Social History Smoking Status: Never smoker Hx Alcohol Use: No Hx Substance Use: No Review of Systems denies fever/cough/ colds/ chest pain/ SOB/ JOSEPHINE denies JOSEPHINE Physical Exam Vital Signs Last Vital Signs Temp 36.6 C 09/14/24 11:29 Pulse 82 09/14/24 07:26 Resp 18 09/14/24 11:29 BP 156/75 H 09/14/24 11:29 Pulse Ox 92 09/14/24 11:29 O2 Del Method Room Air 09/14/24 11:29 ENMT Mouth: no TMJ abnormality and no dentition abnormality Thyromental Distance: > or= 3.5 Finger Breadths Mallampati Class: II Neck neck extension not limited Respiratory normal respiratory effort; no respiratory distress Auscultation: lungs clear to auscultation bilaterally Cardiovascular Rate/Rhythm: regular rate and regular rhythm Neurologic moves all extremities Psychiatric Orientation: alert and oriented x 3 Testing Laboratory Results 09/14/24 07:06 09/14/24 07:06 PT 11.8 Seconds (9.0-12.0) 09/14/24 07:06 INR 1.1 (0.9-1.1) 09/14/24 07:06 APTT 32 Seconds (21-31) H 09/14/24 07:06 Hemoglobin A1c 7.0 % (4.5-5.6) H 09/14/24 07:06 Urine Color Yellow 09/14/24 Unknown Urine Appearance Clear (Clear) 09/14/24 Unknown Urine pH 5.0 (4.5-7.5) 09/14/24 Unknown Ur Specific [place] 1.014 (1.000-1.030) 09/14/24 Unknown Urine Protein Trace (Negative) H 09/14/24 Unknown Urine Glucose (UA) Negative (Negative) 09/14/24 Unknown Urine Ketones Negative (Negative) 09/14/24 Unknown Urine Nitrite Negative (Negative) 09/14/24 Unknown Ur Leukocyte Esterase Negative (Negative) 09/14/24 Unknown Urine WBC (Auto) 0-5 /hpf (0-5) 09/14/24 Unknown Urine RBC (Auto) 0-2 /hpf (0-2) 09/14/24 Unknown U Hyaline Cast (Auto) 0-2 /lpf (0-2) 09/14/24 Unknown U Epithel Cells (Auto) 0-2 /hpf (0-2) 09/14/24 Unknown Urine Bacteria (Auto) None Seen (None Seen) 09/14/24 Unknown 09/13/24 21:18 Gram Stain - Final Foot,Right 09/14/24 09/14/24 11:56 05:49 POC Glucose 140 H 151 H
[2024-09-14] MEDS ORDERED: Nursing to Pharmacy Communication SCH ×2 (13:00→16:00)
[2024-09-14] MEDS ORDERED: KETAMINE HCL 10MG/ML SYR ONE (13:09)
[2024-09-14] MEDS: LR 15ML/HR IV SCH (13:09)
--- NOTE | 2024-09-14 13:17 | Infectious Disease Consult ---
Date of Consultation September 14, 2024 Assessment & Plan (1) Abscess of right foot: (2) Osteomyelitis: (3) Charcot joint of right foot: (4) PAD (peripheral artery disease): (5) CKD stage 3b, GFR 30-44 ml/min: Plan 69yo M wit h/o T2DM, DVT in RLE, bl AMIE, HFpEF, C diff colitis (positive result in [place] in 2018), right Charcot foot with right foot ulcer with osteomyelitis s/p 6 weeks of vancomycin/cefepime eot 06/05/24 (cx with CONS, course c/b renal failure related to vancomycin), h/o prior cx with MSSA and GBS, admitted 06/06-06/12 to [facility] where he had acute renal failure 2/2 vanc/Lasix and further abx were stopped, who presented with swelling and drainage from right foot. Here he has been afebrile, vss. No leukocytosis, Cr 2.35, AST/ALT wnl. UA negative. CXR periphilar peribronchial thickening as can be seen in the setting of infection or bronchitis. CT right foot with extensive destructive changes throughout the midfoot, TMT joints, subtalar joint, and to lesser degree at the ankle; midfoot collapse; extensive soft tissue edema, fluid collection likely infiltrating t hroughout the midfoot; superficial fluid collection and ulceration along the medial aspect of the plantar midfoot; concerning for abscess. LE arterial duplex with 50-70% stenosis in R posterior tibial artery. LE doppler neg for DVT. Renal ultrasound with prostatomegaly with e/o chronic outlet obstruction, incidental splenomegaly. He was started on linezolid and cefepime. ID consulted 09/14. S/p OR 09/14 and underwent right foot I+D and bone biopsy. # Right foot abscess and OM # Recently treated right foot OM ending 06/2024 # h/o T2DM with Charcot foot # CKD with h/o ARF r/t vancomycin (prior Cr in 08/28/24 2.55) - f/u OR cultures and bone biopsy - f/u BCX and WCX - continue linezolid and cefepime for now - final regimen pending above results I reviewed records from [facility] as outlined in H+P. ID will continue to follow. If questions or concerns, contact via [employer] or Infectious Disease Call Center . Frnacy Caal MD [facility], Division of Infectious Diseases Consultation Information Consultation was provided via telemedicine using two-way real-time interactive telecommunication between the patient and the telemedicine provider. For the duration of the visit, the provider was performing the assessment from a different facility than the patient. This includesuse of bluetooth stethoscope forauscultationperformed by the telepresenter that the telemedicine provider can hear if described in the physical exam. Glass Cutting Machine Operator contact information: Please call [facility] Call Center . (Phone Number For Physician Use Only) After establishing a telemedicine visit, patient was: Patient was verified with two unique identifiers, Patient/authorized rep acknowledged consent and understanding and Gave permission to continue telehealth session Time Spent with Patient: Initial => 75 min History of Present Illness Reason for Consultation: foot OM Attending Physician: Wallace Loya History of Present Illness 69yo M wit h/o T2DM, DVT in RLE, bl AMIE, HFpEF, C diff colitis (positive result in [place] in 2017), right Charcot foot with right foot ulcer with osteomyelitis s/p 6 weeks of vancomycin/cefepime eot 06/05/24 (cx with CONS, course c/b renal failure related to vancomycin), h/o prior cx with MSSA and GBS, admitted 06/06-06/12 to [facility] where he had acute renal failure 2/2 vanc/Lasix and further abx were stopped, who presented with worsening of his right foot. He had increasing pain and then developed increased swelling with some drainage on 09/12. He went to [facility] ED where there was standing room only so he left and came to [facility]. No other complaints, no abdominal pain, SOB, vomiting, chest pain. He said he initially developed ulcer in January 2024 and had been getting topical treatments until 04/2024 when he felt it was getting worse and was admitted to [facility]. Per records from there, MRI right foot showed extensive infection, soft tissue swelling, abscess formation, osseous destructive changes and malalignment with involvement of all 5 proximal metatarsals, cuneiforms, navicular, cuboid, talus, and distal calcaneus. LORI showed mild arterial insufficiency B/L. Adequate pressures for wound healing. Ortho there had discussed AKA but patient had declined. He had deep wound cx with heavy growth of CONS (likely contamination) and eventually planned for 6 weeks of IV abx with vancomycin and cefepime. Here he has been afebrile, vss. No leukocytosis, Cr 2.35, AST/ALT wnl. UA negative. CXR periphilar peribronchial thickening as can be seen in the setting of infection or bronchitis. CT foot with extensive destructive changes throughout the midfoot, TMT joints, subtalar joint, and to lesser degree at the ankle; midfoot collapse; extensive soft tissue edema, fluid collection likely infiltrating throughout the midfoot; superficial fluid collection and ulceration along the medial aspect of the plantar midfoot; concerning for abscess. LE arterial duplex with 50-70% stenosis in R posterior tibial artery. LE doppler neg for DVT. Renal ultrasound with prostatomegaly with e/o chronic outlet obstruction, incidental splenomegaly. He was started on linezolid and cefepime. ID consulted 09/14. S/p OR 09/14 and underwent right foot I+D and bone biopsy. Allergies Allergy/AdvReac Type Severity Reaction Status Date / Time vancomycin AdvReac caused Verified 09/13/24 22:47 kidney failure Home Medications Medication Instructions Recorded Confirmed Type amlodipine 10 mg tablet 10 mg PO QAM 09/13/24 09/13/24 History atorvastatin 10 mg tablet 10 mg PO HS 09/13/24 09/13/24 History epoetin josselin 20,000 unit/mL 20,000 unit .EVERY OTHER WEEK 09/13/24 09/13/24 History injection solution (Procrit) ergocalciferol (vitamin D2) 1,250 1,250 mcg PO WK 09/13/24 09/13/24 History mcg (50,000 unit) capsule fluticasone propionate 50 2 spray intranasal DAILY 09/13/24 09/13/24 History mcg/actuation nasal spray,suspension furosemide 40 mg tablet 40 mg PO DAILY PRN swelling 09/13/24 09/13/24 History hydralazine 50 mg tablet 50 mg PO AMHS 09/13/24 09/13/24 History insulin glargine 100 unit/mL (3 30 unit subcut AMHS 09/13/24 09/13/24 History mL) subcutaneous pen (Lantus Solostar U-100 Insulin) metoprolol succinate 25 mg 25 mg PO QPM 09/13/24 09/13/24 History tablet,extended release 24 hr polysaccharide iron complex 150 mg 150 mg PO QAM 09/13/24 09/13/24 History iron capsule sevelamer HCl 800 mg tablet 800 mg PO BIDM 09/13/24 09/13/24 History sodium bicarbonate 650 mg tablet 650 mg PO TID 09/13/24 09/13/24 History tamsulosin 0.4 mg capsule 0.4 mg PO HS 09/13/24 09/13/24 History zolpidem 10 mg tablet 10 mg PO HS PRN Sleep 09/13/24 09/13/24 History Patient History Medical History Vancomycin adverse reaction History of Clostridioides difficile colitis History of deep venous thrombosis (DVT) of distal vein of right lower extremity Social History Smoking Status: Never smoker Hx Alcohol Use: No Hx Substance Use: No Preferred Language: Kazakh Communication Ability: Effective Site Damage Prevention Technician Required: No Beliefs That Will Affect Care: None Current Living Situation: Family Current Living Situation Comment: With daughter Ayla Feels Safe at Home: Yes Assistive Devices: Cane and Glasses Review of System 10-point review of systems reviewed and are negative except for as above. Physical Exam Physical Exam: General: Awake, alert, no acute distress HEENT: NC/AT, EOMI, mmm Neck: supple Lungs: respirations non-labored Heart: nl peripheral perfusion Abdomen: soft, NT/ND Ext: + LE edema, right foot with charcot deformity, area of dusky and yellow discoloration Neuro: moving all extremities Results & Data Vital Signs (Past 12 Hours) Vital Signs Temp Pulse Pulse Resp BP BP Pulse Ox 09/14/24 12:32 36.6 C 87 20 135/68 92 09/14/24 11:29 36.6 C 18 156/75 H 92 09/14/24 07:46 36.3 C L 18 149/75 H 92 09/14/24 07:26 82 09/14/24 03:05 36.5 C 87 18 163/81 H 94 09/14/24 02:30 85 09/14/24 02:29 36.5 C 87 18 163/81 H 94 09/14/24 02:11 36.7 C 88 17 128/73 98 O2 Del Method 09/14/24 12:32 Room Air 09/14/24 11:29 Room Air 09/14/24 07:46 Room Air 09/14/24 07:26 09/14/24 03:05 Room Air 09/14/24 02:30 09/14/24 02:29 Room Air 09/14/24 02:11 Room Air Laboratory Results Labs reviewed. Diagnostic Findings Imaging reviewed.
[2024-09-14] MEDS: BUPIVACAINE 0.5 % 5 MG/1 ML MPF 30ML VIAL ONE (13:21)
[2024-09-14] MEDS ORDERED: PHENYLEPHRINE 100MCG/ML 5ML SYR ONE (13:28)
[2024-09-14] MEDS ORDERED: ePHEDrine sulfate 50 MG/ML AMP ONE (13:31)
--- NOTE | 2024-09-14 13:41 | Post Operative Brief Note ---
Immediate Post Op Note Date of Surgery September 14, 2024 Pre & Post Diagnosis Preoperative diagnosis: Charcot neuroarthropathy; history of right foot osteomyelitis Postoperative diagnosis: Same I identified the patient and participated in the time-out.: Yes Procedure Right foot incision and drainage of infected bone; right foot bone biopsy Surgeon Pernell La, BEULAH Maintenance Custodian None Estimated Blood Loss 20 Findings Consistent with Post-Op Diagnosis Significant deep tunneling of the ulceration was noted, with the newly found ulcer measuring 2 x 2 cm and tracking 8 cm laterally across the plantar midfoot as well as 12 cm proximally along the plantar midfoot. They did communicate with the known plantar chronic ulceration. No obvious deep extension to bone was identified. Conditioner Tumbler Operator samples of talus bone were obtained through an adjacent incision through the medial longitudinal arch. Specimens Right foot talus biopsy/pathology Right foot talus culture/sensitivity Anesthesia Type MAC Complications none Disposition Accompanied Patient To Recovery: Yes Disposition: Recovery Room
--- NOTE | 2024-09-14 14:10 | Anesthesiology Progress Note ---
Date of Service September 14, 2024 Anesthesia Post Procedure Vital Signs Vital Signs: Temp Pulse Pulse Resp BP BP Pulse Ox 09/14/24 14:05 36.4 C L 81 16 131/67 92 09/14/24 13:55 81 19 128/67 94 09/14/24 13:45 36.1 C L 79 17 125/64 96 09/14/24 12:32 36.6 C 87 20 135/68 92 09/14/24 11:29 36.6 C 18 156/75 H 92 09/14/24 07:46 36.3 C L 18 149/75 H 92 09/14/24 07:26 82 09/14/24 03:05 36.5 C 87 18 163/81 H 94 09/14/24 02:30 85 09/14/24 02:29 36.5 C 87 18 163/81 H 94 09/14/24 02:11 36.7 C 88 17 128/73 98 09/13/24 23:00 88 18 143/96 H 93 09/13/24 21:28 83 09/13/24 21:19 84 23 95 09/13/24 21:19 95 09/13/24 21:19 80 19 141/79 H 94 09/13/24 18:31 37.1 C 90 18 114/80 98 O2 Del Method O2 Flow Rate 09/14/24 14:05 Room Air 09/14/24 13:55 Oxymask 2 09/14/24 13:45 Oxymask 6 09/14/24 12:32 Room Air 09/14/24 11:29 Room Air 09/14/24 07:46 Room Air 09/14/24 07:26 09/14/24 03:05 Room Air 09/14/24 02:30 09/14/24 02:29 Room Air 09/14/24 02:11 Room Air 09/13/24 23:00 Room Air 09/13/24 21:28 09/13/24 21:19 Room Air 09/13/24 21:19 Room Air 09/13/24 21:19 Room Air 09/13/24 18:31 Room Air Transfer of Care Handoff Completed per policy Notes Mental Status: alert / awake / arousable and participated in evaluation Patient Amnestic to Procedure: Yes Nausea / Vomiting: adequately controlled Pain: adequately controlled Airway Patency, RR, SpO2: stable & adequate BP & HR: stable & adequate Hydration State: stable & adequate Anesthetic Complications: no major complications apparent and Pt Satisfied with anesthetic care
[2024-09-14] MEDS: EPOETIN ALFA 20,000 UNITS/ML VIAL SQ ONE (17:40)
[2024-09-14] MEDS ORDERED: LANTUS PER UNIT CHARGE SQ SCH (21:00)
[2024-09-14] MEDS: ATORVASTATIN 10 MG TAB PO SCH (21:40)
[2024-09-14] MEDS: TAMSULOSIN HCL 0.4 MG CAP PO SCH (21:40)
[2024-09-14] MEDS: METOPROLOL SUCC 25MG EXT REL TAB PO SCH (21:41)
--- NOTE | 2024-09-14 22:30 | Hospitalist Progress Note ---
Date of Service September 14, 2024 Assessment & Plan (1) Osteomyelitis of right foot: (2) CKD stage 3b, GFR 30-44 ml/min: (3) Diabetes mellitus: (4) Hypertension: (5) PAD (peripheral artery disease): (6) Anemia in chronic kidney disease (CKD): Plan Recurrent right foot osteomyelitis- Patient records requested from [facility], where he was treated with 6 weeks of IV antibiotics Follow blood culture and blood culture sensitivities Empiric Zyvox 600 mg IV every 12 hours and cefepime 2 g IV every 12 hours Patient with adverse reaction to vancomycin, which cannot be used Zyvox chosen instead of daptomycin, due to question of possible bronchitis on chest x-ray CT scan of foot shows extensive struct of changes throughout the midfoot, TMT joints, subtalar joint, and to lesser degree at the ankle. Midfoot collapse. Extensive soft tissue edema. Fluid collection likely infiltrating throughout the midfoot. Superficial fluid collection and ulceration along the medial aspect of the plantar midfoot concerning for abscess Patient did have history of right lower extremity DVT, but has negative venous Dopplers this evening Lower extremity arterial Dopplers show bilateral plaque both lower extremities, and 50 to 70% stenosis of the right posterior tibial artery. Triphasic waveforms throughout both lower extremities Appreciate podiatry: S/P I and D. Right foot incision and drainage of infected bone; right foot bone biopsy Patient will likely need PICC line placement and long-term IV antibiotics As noted above, obtaining records from [facility] Acetaminophen 650 mg by mouth every 6 hours as needed for mild pain or fever Morphine sulfate 2 mg IV every 3 hours as needed for moderate pain Morphine sulfate 4 mg IV every 3 hours as needed for severe pain Consulted nfectious disease Consulted wound care CKD- Family reports acute injury occurred while using vancomycin IV for previous infection Creatinine 2.35 on admission, will need to compare to [facility] records Follow laboratory serially Placed on NSS at 125 mL/h Continue Savella Mayor, sodium bicarbonate, Niferex, vitamin D 2, and Procrit every other week Appreciate nephrology input/ Diabetes mellitus- Glucose 187 on admission N.p.o. after midnight for possible procedure Reduce glargine from 30 to 15 units subcu twice daily Placed on Accu-Cheks with NovoLog SSI Hypertension- Continue amlodipine, metoprolol BPH- Continue tamsulosin Follow urine output History of C. difficile colitis- Has been recurrent issue when on IV antibiotics will add vancomycin in AM of 09/15 Admission and Anticipated Discharge Date Admission Date: September 13, 2024 Subjective Patient reports feeling well. He tolerated the procedure. Review of Systems Review of Systems: All systems reviewed & are unremarkable except as noted in HPI & below Physical Exam Physical Exam: HEENT--PERRL, EOMI Neck--supple. No JVD. No bruits. Thyroid normal, trachea midline, no adenopathy. Heart--normal S1 and S2. No murmurs, rubs or gallops. Lungs--clear bilaterally, no respiratory distress, no accessory muscle use. Abdomen--normal bowel sounds and soft. Nontender. Nondistended. Mildly obese Neurologic--cranial nerves II through XII grossly intact. Rheumatologic--normal range of motion except for right lower extremity ankle and foot Psychiatric--normal affect. Results & Data Results & Data Vital Signs (Past 12 Hours) Vital Signs Temp Pulse Resp BP Pulse Ox O2 Del Method O2 Flow Rate 09/14/24 19:29 36.9 C 67 18 147/77 H 96 Room Air 09/14/24 15:13 36.4 C L 16 146/76 H 90 Room Air 09/14/24 14:28 36.5 C 84 16 127/70 91 Room Air 09/14/24 14:05 36.4 C L 81 16 131/67 92 Room Air 09/14/24 13:55 81 19 128/67 94 Oxymask 2 09/14/24 13:45 36.1 C L 79 17 125/64 96 Oxymask 6 09/14/24 12:32 36.6 C 87 20 135/68 92 Room Air 09/14/24 11:29 36.6 C 18 156/75 H 92 Room Air PG Care Time/CCT Total # of Minutes Spent Total Time Spent with Patient: Total time spent is greater than 50% in coordination of care (as documented) at patient's floor/unit and/or counseling patient: Coding Level of Care Code 33977 SUB INP/OBS CARE 2/35MIN Diagnoses Other osteomyelitis of right foot M86.8X7 Osteomyelitis type: other CKD stage 3b, GFR 30-44 ml/min 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, unspecified whether mcc insulin use E11.610 Diabetes mellitus complication detail: with neuropathic arthropathy Diabetes mellitus complication status: with diabetic arthropathy Diabetes mellitus rodent exterminator insulin use: unspecified mcc insulin use status Diabetes mellitus type: type 2 Hypertension I10 PAD (peripheral artery disease) I73.9 Anemia in chronic kidney disease (CKD) N18.9; D63.1 (1) Osteomyelitis of right foot Osteomyelitis type: other Qualified Code(s): M86.8X7 - Other osteomyelitis, ankle and foot (3) Diabetes mellitus Diabetes mellitus complication detail: with neuropathic arthropathy Diabetes mellitus complication status: with diabetic arthropathy Diabetes mellitus rodent exterminator insulin use: unspecified rodent exterminator insulin use status Diabetes mellitus type: type 2 Qualified Code(s): E11.610 - Type 2 diabetes mellitus with diabetic neuropathic arthropathy
[2024-09-14] MEDS: ACETAMINOPHEN 325 MG TAB PO PRN (23:05)
[2024-09-14 23:16] LABS: Appearance Urine Clear (Clear); Bacteria Urine Automated None Seen (None Seen); Bilirubin Urine Negative (Negative); Blood Urine Negative (Negative); Cast Urine Automated 0-2 /lpf (0-2); Color Urine Yellow; Epithelial Cell Urine Auto 0-2 /hpf (0-2); Glucose Urine UA Negative (Negative); Ketones Urine Negative (Negative); Leukocyte Esterase Urine Negative (Negative); Nitrite Urine Negative (Negative); Protein Urine Trace (Negative); RBC Urine Automated 0-2 /hpf (0-2); Specific Gravity Urine 1.015 (1.000-1.030); Urobilinogen Urine Negative (Negative); WBC Urine Automated 0-5 /hpf (0-5)
[2024-09-14 23:32] LABS: Microalbumin Creatinine Ratio 45.4 mg/g (0-30); Microalbumin Urine 29.1 mg/L
--- NOTE | 2024-09-15 08:39 | Nephrology Progress Note ---
Date of Service September 15, 2024 Assessment & Plan (1) CKD stage 3b, GFR 30-44 ml/min: Plan: * Baseline Cr 0.8-1.0 04/26 at [facility] * Nephrology records from 07/27 [facility] hospitalization have been requested - pending * Patient appears euvolemic. Cr 2.2 yesterday. Awaiting 09/15/24 am labs * Urinalysis w/ trace protein. Urine sediment negative for blood. Only hyaline casts reported * 09/14/24 MACR 45.4 * 09/14/24 renal US: R 12.1 cm, L 12.6 cm. No stone or hydronephrosis. BPH w/ OWEN * Clinically suspect vancomycin associated JENNIFER * Monitor BMP, UO (2) Osteomyelitis of right foot: Plan: * 09/13/[address] - probable abscess plantar midfoot * s/p I&D R foot abscess 09/14/24. Await bone biopsy results (3) Diabetes mellitus: Plan: * Longstanding AODM. No h/o retinopathy/neuropathy. Not on ERIN/ARB/SGLT2i/GLP- 1 prior to hospitalization (4) Anemia in chronic kidney disease (CKD): Plan: * Anemia likely related to inflammation * Iron studies, FOBT - pending * Consider blood transfusion for Hgb < 7.0, symptoms (5) Vancomycin adverse reaction: Admission and Anticipated Discharge Date Admission Date: September 13, 2024 Subjective Mr. Sales was evaluated in his hospital room this morning. He underwent surgical drainage of his R foot abscess last evening. He denies fever, angina or dyspnea this morning. Mr. Sales's daughter was present at bedside. Review of [facility] portal 04/26 reveals baseline Cr 0.8-1.0 Review of Systems Constitutional: no fever Eyes: no problem reported Ear, Nose, Mouth, Throat: no problem reported Respiratory: no cough and no dyspnea Cardiovascular: no chest pain Gastrointestinal: no abdominal pain, no nausea, no vomiting and no diarrh ea/loose stools Genitourinary: no dysuria, no hematuria or no flank pain Integumentary: no rash Neurologic: no problem reported Physical Exam Constitutional: not in distress Eyes: PERRL, conjunctivae normal, anicteric sclerae ENMT: Mouth: + dry oral mucous membranes Neck: trachea midline, no thyromegaly Respiratory: normal respiratory effort, lungs clear to auscultation Cardiovascular: RRR, no murmur, no edema Gastrointestinal (Abdomen): normal bowel sounds, soft, nontender, no hepatosplenomegaly Musculoskeletal: Extremities: + foot abnormality Right (foot wrapped) Skin: no rashes, warm and dry Neurologic: awake; not confused Results & Data Vital Signs (Past 12 Hours) Vital Signs Temp Pulse Pulse Pulse Resp BP Pulse Ox 09/15/24 07:46 37.1 C 85 18 145/73 H 92 09/15/24 06:12 84 09/15/24 03:47 36.9 C 85 18 136/74 91 09/15/24 00:41 87 09/14/24 23:14 37.3 C 86 18 140/75 90 O2 Del Method 09/15/24 07:46 Room Air 09/15/24 06:12 09/15/24 03:47 Room Air 09/15/24 00:41 09/14/24 23:14 Room Air Laboratory Results Laboratory Results - last 24 hr 09/14/24 09/14/24 09/14/24 11:56 12:47 13:51 WBC RBC Hgb Hct MCV MCH MCHC Plt Count PT INR APTT PTT Ratio Sodium Potassium Chloride Carbon Dioxide Anion Gap BUN Creatinine Est Cr Clr Drug Dosing eGFR BUN/Creatinine Ratio Glucose POC Glucose 140 H 137 H 133 H Calcium Magnesium Iron TIBC Transferrin Transferrin % Sat Ferritin Total Bilirubin AST ALT Alkaline Phosphatase C-Reactive Protein Total Protein Albumin Globulin Albumin/Globulin Ratio Urine Color Urine Appearance Urine pH Ur Specific [place] Urine Protein Urine Glucose (UA) Urine Ketones Urine Blood Urine Nitrite Urine Bilirubin Urine Urobilinogen Ur Leukocyte Esterase Urine WBC (Auto) Urine RBC (Auto) U Hyaline Cast (Auto) U Epithel Cells (Auto) Urine Bacteria (Auto) Ur Random Creatinine Ur Random Microalbumin Microalb/Creat Ratio 09/14/24 09/14/24 09/14/24 17:39 21:30 22:58 WBC RBC Hgb Hct MCV MCH MCHC Plt Count PT INR APTT PTT Ratio Sodium Potassium Chloride Carbon Dioxide Anion Gap BUN Creatinine Est Cr Clr Drug Dosing eGFR BUN/Creatinine Ratio Glucose POC Glucose 207 H 215 H Calcium Magnesium Iron TIBC Transferrin Transferrin % Sat Ferritin Total Bilirubin AST ALT Alkaline Phosphatase C-Reactive Protein Total Protein Albumin Globulin Albumin/Globulin Ratio Urine Color Yellow Urine Appearance Clear Urine pH 5.0 Ur Specific [place] 1.015 Urine Protein Trace H Urine Glucose (UA) Negative Urine Ketones Negative Urine Blood Negative Urine Nitrite Negative Urine Bilirubin Negative Urine Urobilinogen Negative Ur Leukocyte Esterase Negative Urine WBC (Auto) 0-5 Urine RBC (Auto) 0-2 U Hyaline Cast (Auto) 0-2 U Epithel Cells (Auto) 0-2 Urine Bacteria (Auto) None Seen Ur Random Creatinine 64.0 Ur Random Microalbumin 29.1 Microalb/Creat Ratio 45.4 H 09/15/24 09/15/24 07:52 08:20 WBC Pending RBC Pending Hgb Pending Hct Pending MCV Pending MCH Pending MCHC Pending Plt Count Pending PT Pending INR Pending APTT Pending PTT Ratio Pending Sodium Pending Potassium Pending Chloride Pending Carbon Dioxide Pending Anion Gap Pending BUN Pending Creatinine Pending Est Cr Clr Drug Dosing Pending eGFR Pending BUN/Creatinine Ratio Pending Glucose Pending POC Glucose 115 H Calcium Pending Magnesium Pending Iron Pending TIBC Pending Transferrin Pending Transferrin % Sat Pending Ferritin Pending Total Bilirubin Pending AST Pending ALT Pending Alkaline Phosphatase Pending C-Reactive Protein Pending Total Protein Pending Albumin Pending Globulin Pending Albumin/Globulin Ratio Pending Urine Color Urine Appearance Urine pH Ur Specific [place] Urine Protein Urine Glucose (UA) Urine Ketones Urine Blood Urine Nitrite Urine Bilirubin Urine Urobilinogen Ur Leukocyte Esterase Urine WBC (Auto) Urine RBC (Auto) U Hyaline Cast (Auto) U Epithel Cells (Auto) Urine Bacteria (Auto) Ur Random Creatinine Ur Random Microalbumin Microalb/Creat Ratio PG Care Time/CCT Total # of Minutes Spent Total Time Spent with Patient: Total time spent is greater than 50% in coordination of care (as documented) at patient's floor/unit and/or counseling patient: Coding Level of Care Code 83319 SUB INP/OBS CARE 3/50MIN Diagnoses CKD stage 3b, GFR 30-44 ml/min N18.32 Other osteomyelitis of right foot M86.8X7 Osteomyelitis type: other Type 2 diabetes mellitus with diabetic neuropathic arthropathy, unspecified whether shelter insulin use E11.610 Diabetes mellitus complication detail: with neuropathic arthropathy Diabetes mellitus complication status: with diabetic arthropathy Diabetes mellitus laborer marine terminal insulin use: unspecified shelter insulin use status Diabetes mellitus type: type 2 Anemia in chronic kidney disease (CKD) N18.9; D63.1 Vancomycin adverse reaction T36.8X5A (2) Osteomyelitis of right foot Osteomyelitis type: other Qualified Code(s): M86.8X7 - Other osteomyelitis, ankle and foot (3) Diabetes mellitus Diabetes mellitus complication detail: with neuropathic arthropathy Diabetes mellitus complication status: with diabetic arthropathy Diabetes mellitus shelter insulin use: unspecified shelter insulin use status Diabetes mellitus type: type 2 Qualified Code(s): E11.610 - Type 2 diabetes mellitus with diabetic neuropathic arthropathy
[2024-09-15] MEDS: LANTUS PER UNIT CHARGE SC SCH (09:01)
[2024-09-15] MEDS: CHERRY SYRUP 5 ML UDP PO SCH (09:13)
[2024-09-15] MEDS: VANCOMYCIN HCL 125 MG/2.5ML SOLN PO SCH (09:14)
[2024-09-15 09:21] LABS: Basophils # (auto) 0.03 K/uL (0.00-0.20); Basophils % (auto) 0.5 %; Eosinophils # (auto) 0.12 K/uL (0.00-0.50); Eosinophils % (auto) 2.1 %; Hematocrit (blood only) 24.7 % (42.0-52.0); Hemoglobin 7.9 g/dl (14.0-18.0); Immature Granulocytes # (auto) 0.03 K/uL (0.01-0.20); Immature Granulocytes % (auto) 0.5 %; Lymphocytes # (auto) 0.45 K/uL (1.20-3.40); Lymphocytes % (auto) 7.7 %; Mean Corpuscular Hemoglobin 28.2 pg (25.0-34.0); Mean Corpuscular Volume 88.2 fL (80.0-100.0); Mean Platelet Volume 8.6 fL (9.4-12.4); Monocytes # (auto) 0.58 K/uL (0.11-0.59); Neutrophils # (auto) 4.61 K/uL (1.40-6.50); Neutrophils % (auto) 79.2 %; Platelet Count 194 K/uL (130-400); RDW Standard Deviation 48.1 fL (36.4-46.3); White Blood Count 5.82 K/ul (4.8-10.8)
[2024-09-15 09:46] LABS: Albumin Globulin Ratio 1.2 (0.9-2); Albumin Level 3.7 gm/dl (3.4-5.0); BUN Creatinine Ratio 19.6 (10-20); Bilirubin,Total 0.7 mg/dl (0.2-1.0); C Reactive Protein 5.32 mg/dl (0-0.5); Calcium 10.1 mg/dl (8.6-10.3); Creatinine Clr Calc Pharmacy 37.1 ml/min; Globulin 3.1 gm/dl (2.5-4.0); Potassium 4.5 mmol/L (3.5-5.1); Total Protein 6.8 gm/dl (6.0-8.3)
[2024-09-15 09:51] LABS: INR 1.1 (0.9-1.1); Partial Thromboplastin Ratio 1.1; Partial Thromboplastin Time 29 Seconds (21-31); Prothrombin Time 11.5 Seconds (9.0-12.0)
[2024-09-15 10:05] LABS: Ferritin 205.6 ng/ml (8-388)
--- NOTE | 2024-09-15 13:23 | Infectious Disease Progress Nt ---
Date of Service September 15, 2024 Assessment & Plan (1) Abscess of right foot: (2) Osteomyelitis: (3) Charcot joint of right foot: (4) PAD (peripheral artery disease): (5) CKD stage 3b, GFR 30-44 ml/min: Plan 69yo M wit h/o T2DM, DVT in RLE, bl AMIE, HFpEF, C diff colitis (positive result in [place] in 2018), right Charcot foot with right foot ulcer with osteomyelitis s/p 6 weeks of vancomycin/cefepime eot 06/05/24 (cx with CONS, course c/b renal failure related to vancomycin), h/o prior cx with MSSA and GBS, admitted 06/06-06/12 to [facility] where he had acute renal failure 2/2 vanc/Lasix and further abx were stopped, who presented with swelling and drainage from right foot. Here he has been afebrile, vss. No leukocytosis, Cr 2.35, AST/ALT wnl. UA negative. CXR periphilar peribronchial thickening as can be seen in the setting of infection or bronchitis. CT right foot with extensive destructive changes throughout the midfoot, TMT joints, subtalar joint, and to lesser degree at the ankle; midfoot collapse; extensive soft tissue edema, fluid collection likely infiltrating throughout the midfoot; superficial fluid collection and ulceration along the medial aspect of the plantar midfoot; concerning for abscess. LE arterial duplex with 50-70% stenosis in R posterior tibial artery. LE doppler neg for DVT. Renal ultrasound with prostatomegaly with e/o chronic outlet obstruction, incidental splenomegaly. He was started on linezolid and cefepime. ID consulted 09/14. S/p OR 09/14 and underwent right foot I+D and bone biopsy. OR cultures with S aureus. Wound cx with MSSA and Strep canis. Based on op note, the OR cultures are from talus bone. Given positive bone cultures, he will need treatment for osteomyelitis. Wound cx have MSSA and CONS. OR cx with S aureus so far after 24hrs. Will wait until full 48hrs prior to abx adjustments and ensuring he doesnt have MRSA. If MSSA only and no other growth, then plan will be to change abx to cefazolin. I did add on CPK in case he will need daptomycin for MRSA coverage. # Right foot abscess and OM s/p debridement of abscess and bone bx on 09/14 # Recently treated right foot OM ending 06/2024 # h/o T2DM with Charcot foot # CKD with h/o ARF r/t vancomycin (prior Cr in 08/28/24 2.55) - f/u all cultures and bone biopsy - will keep on empiric linezolid and cefepime for now - if tomorrow, after 48hrs, no other growth of organisms and only growth is MSSA +/- oxacillin-sensitive coag-negative Staph or Strep, then antibiotics can be changed to cefazolin 2g IV q8h (renally adjust as needed) - if growth of MRSA, then favored abx for the duration of course will be daptomycin 8-10mg/kg IV daily (renally adjust as needed) - will plan for 6 weeks of IV antibiotics given positive bone cultures (start 09/14, end 10/25) - he needs outpatient ID follow up and will need weekly labs (CBC w diff, CMP, ESR, CRP, +/- CPK if he ends up on daptomycin) ID will continue to follow. Please note that there will be no ID notes over the weekend. If questions or concerns arise, please contact the Infectious Disease Call Center and ask to speak with the covering ID physician. Francy Caal MD [facility], Division of Infectious Diseases Admission and Anticipated Discharge Date Admission Date: September 13, 2024 Subjective This patient recommendation is based on a telemedicine consult request which was completed asynchronously through chart review and information provided by the primary physician. The patient was not seen or examined today. The evaluation is consultative in nature and all patient care and treatment decisions can either be accepted or rejected by the patient's primary hospital-based treating physician using their own independent medical judgment for their patient. Time Spent Reviewing Chart: 31+ minutes Results & Data Vital Signs (Past 12 Hours) Vital Signs Temp Pulse Pulse Pulse Resp BP Pulse Ox 09/15/24 12:32 36.5 C 80 16 150/71 H 93 09/15/24 07:46 37.1 C 85 18 145/73 H 92 09/15/24 07:28 09/15/24 06:12 84 09/15/24 03:47 36.9 C 85 18 136/74 91 O2 Del Method 09/15/24 12:32 Room Air 09/15/24 07:46 Room Air 09/15/24 07:28 Room Air 09/15/24 06:12 09/15/24 03:47 Room Air
--- NOTE | 2024-09-15 14:00 | Pharmacy Report ---
Pharmacy Glycemic Short Note 2 - Date of Service September 15, 2024 - Glycemic Short BSG Results (Last 24 hours): 09/14/24 09/14/24 09/14/24 13:51 17:39 21:30 Glucose POC Glucose 133 H 207 H 215 H 09/15/24 09/15/24 09/15/24 07:52 08:20 12:22 Glucose 99 POC Glucose 115 H 148 H OUTPATIENT ANTIDIABETIC REGIMEN: * Lantus 30 units bid ASSESSMENT: 09/15 * Patient received total 36 units of insulin yesterday: 23 units basal and 13 units bolus. * BSGs yesterday were 640-231-768-215 mg/dl. Fasting BSG today was 115 mg/dl. * Basal dose this AM was increased about 20% from yesterday. Will continue with basal dose on a scale for HS today. * Novolog parameters tightened slightly this morning. 09/14 * 69 year old admitted with foot osteomyelitis. Previously treated per notes with IV antibiotics. Pharmacy consulted for glycemic management. Patient with potential JENNIFER, unclear however of baseline renal function - nephrology consulted. Patient started on Lantus 15 units bid, NPO this morning. Reasonable to continue current regimen, may adjust evening basal dose 10-15 units depending on blood sugar value. PLAN FOR INPATIENT GLYCEMIC CONTROL: * Basal insulin * Lantus 18 units SQ QAM * Lantus 0-5 units SQ HS * Bolus insulin * NovoLog per scale ACHS or Q6hrs while NPO * Goal Range: Low 110 mg/dL - High 140 mg/dL * Correction Factor: 20 mg/dL/unit * Nutritional / Prandial insulin per carb ratio of 1 unit per 8 grams CHO consumed
--- NOTE | 2024-09-15 21:10 | Podiatry Progress Note ---
Date of Service September 15, 2024 Assessment & Plan (1) Osteomyelitis of right foot: (2) Diabetes mellitus: (3) Charcot joint of right foot: Plan Patient was examined and evaluated. - Dressing removed, foot cleaned, redressed with Aquacel and sterile dressing by Scarlet. Appreciate her input/care. - Continue wound care while inpatient. Can d/c home when stable medically. - Should be fit into walking boot for home use, ideally, before d/c for ambulating. - Otherwise, will need to be NWB with surgical shoe for protection/pivoting at home. - Will keep dressing clean, dry, and intact on discharge and f/u with us within a week. Will need followup with wound care outpatient, as well. - Can plan definitive surgical correction in future if bone results are encouraging. Otherwise, will need IV antibiotics and wound care/closure prior to definitive reconstruction vs. BKA. Admission and Anticipated Discharge Date Admission Date: September 13, 2024 Subjective Pt seen at bedside at lunch, with Scarlet from Wound Care. Pt denies new concerns. Still interested in limb salvage. No new pain postoperatively. Did have bleeding to ulcer last night, has since diminished. No new systemic s/s of infection. Has been ambulating to/from bathroom. Review of Systems Constitutional: + weakness; no fever, no chills and no f atigue Eyes: no problem reported Ear, Nose, Mouth, Throat: no problem reported Respiratory: no problem reported Cardiovascular: + edema; no problem reported Gastrointestinal: no nausea, no vomiting and no problem reported Musculoskeletal: + deformity, + swelling and + limited ra nge of motion; no problem reported Integumentary: + skin ulcer, + wounds and + erythema Neurologic: + unsteadiness, + loss of sensation, + n umbness and + paresthesia; no generalized weakness Psychiatric: no problem reported Physical Exam Physical Exam: Bilateral lower extremity focused exam: DP/PT pulses 1/4 bilaterally. CFT is brisk to the digits. No open wounds noted to the left foot. Mild Charcot neuroarthropathy noted to the left with a mild rocker-bottom deformity. On the right foot there is a extensive Charcot collapse, noted clinically and radiographically. This is at the level of the midfoot joints with extensive destruction of the midfoot complex. Underlying this, along the plantar medial arch there is a small 0.3 cm ulceration. This ulceration did extend surgically directly to a larger 2x2 cm ulceration at the medial longitudinal arch. This ulcer, through a series of tunnels, extended laterally across the plantar foot 8cm and proximally along the medial longitudinal arch around 12cm. No vladimir purulence in these deeper structures; purulence was confined to the superficial skin, drained at bedside earlier yesterday. Of note, neither wound probed to bone on palpation/surgical exam. A separate incision was made medially to obtain specimens for bone biopsy/culture. This site and the smaller plantar ulcer were closed primarily with 2-0 nylon. Sutures currently intact. Constitutional: WD/WN, vitals as above + ill appearing and + morbidly obese Eyes: PERRL, conjunctivae normal, anicteric sclerae ENMT: external ear and nose normal, oropharynx normal Neck: trachea midline, no thyromegaly normal visual inspection Respiratory: normal respiratory effort; no respiratory distress Cardiovascular: Rate/Rhythm: regular rate and regular rhythm Vessels: posterior tibial pulses present and dorsalis pedis pulses present Chest (Breasts): Chest: normal inspection of chest Gastrointestinal (Abdomen): Inspection/Auscultation: abdomen normal to inspection Percussion/Palpation: + abdomen tender and abdomen soft Musculoskeletal: no cyanosis or clubbing, extremities motor strength 5/5 Head/Neck/Chest: normocephalic and head atraumatic Extremities: extremities normal to inspection Skin: + ulcer, + wound, + skin atrophy, + fist ulous tract and + nails dystrophic Neurologic: awake; + abnormal sensation to monofilament and no focal motor deficits Psychiatric: A+Ox3, euthymic affect Results & Data Results & Data Vital Signs (Past 12 Hours) Vital Signs Temp Pulse Pulse Pulse Resp BP BP 09/15/24 20:00 36.8 C 92 H 20 163/70 H 09/15/24 15:46 36.4 C L 71 20 155/75 H 09/15/24 13:37 77 09/15/24 12:32 36.5 C 80 16 150/71 H Pulse Ox O2 Del Method 09/15/24 20:00 93 Room Air 09/15/24 15:46 92 Room Air 09/15/24 13:37 09/15/24 12:32 93 Room Air (1) Osteomyelitis of right foot Osteomyelitis type: other Qualified Code(s): M86.8X7 - Other osteomyelitis, ankle and foot (2) Diabetes mellitus Diabetes mellitus type: type 2 Diabetes mellitus half-way insulin use: unspecified intermediate frame tender insulin use status Diabetes mellitus complication status: with diabetic arthropathy Diabetes mellitus complication detail: with neuropathic arthropathy Qualified Code(s): E11.610 - Type 2 diabetes mellitus with diabetic neuropathic arthropathy
[2024-09-15] MEDS: LANTUS PER UNIT CHARGE SQ SCH (21:14)
--- NOTE | 2024-09-15 22:11 | Hospitalist Progress Note ---
Date of Service September 15, 2024 Assessment & Plan (1) Osteomyelitis of right foot: (2) CKD stage 3b, GFR 30-44 ml/min: (3) Diabetes mellitus: (4) Hypertension: (5) PAD (peripheral artery disease): (6) Anemia in chronic kidney disease (CKD): Plan Recurrent right foot osteomyelitis- Patient records requested from [facility], where he was treated with 6 weeks of IV antibiotics Follow blood culture and blood culture sensitivities Empiric Zyvox 600 mg IV every 12 hours and cefepime 2 g IV every 12 hours Patient with adverse reaction to vancomycin, which cannot be used Zyvox chosen instead of daptomycin, due to question of possible bronchitis on chest x-ray CT scan of foot shows extensive struct of changes throughout the midfoot, TMT joints, subtalar joint, and to lesser degree at the ankle. Midfoot collapse. Extensive soft tissue edema. Fluid collection likely infiltrating throughout the midfoot. Superficial fluid collection and ulceration along the medial aspect of the plantar midfoot concerning for abscess Patient did have history of right lower extremity DVT, but has negative venous Dopplers this evening Lower extremity arterial Dopplers show bilateral plaque both lower extremities, and 50 to 70% stenosis of the right posterior tibial artery. Triphasic waveforms throughout both lower extremities Appreciate podiatry: S/P I and D. Right foot incision and drainage of infected bone; right foot bone biopsy Patient will likely need PICC line placement and long-term IV antibiotics As noted above, obtaining records from [facility] Acetaminophen 650 mg by mouth every 6 hours as needed for mild pain or fever Morphine sulfate 2 mg IV every 3 hours as needed for moderate pain Morphine sulfate 4 mg IV every 3 hours as needed for severe pain Consulted nfectious disease Consulted wound care CKD- Family reports acute injury occurred while using vancomycin IV for previous infection Creatinine 2.35 on admission, will need to compare to [facility] records Follow laboratory serially Placed on NSS at 125 mL/h Continue Savella Mayor, sodium bicarbonate, Niferex, vitamin D 2, and Procrit every other week Appreciate nephrology input. Discussed with patient regarding risk of JENNIFER from PO vanco. Likely this will not be absorbed and this is only preventative dose. will monitor. Diabetes mellitus- Glucose 187 on admission N.p.o. 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 Physical Exam Physical Exam: HEENT--PERRL, EOMI Neck--supple. No JVD. No bruits. Thyroid normal, trachea midline, no adenopathy. Heart--normal S1 and S2. No murmurs, rubs or gallops. Lungs--clear bilaterally, no respiratory distress, no accessory muscle use. Abdomen--normal bowel sounds and soft. Nontender. Nondistended. Mildly obese Neurologic--cranial nerves II through XII grossly intact. Rheumatologic--normal range of motion except for right lower extremity ankle and foot Psychiatric--normal affect. Results & Data Results & Data Vital Signs (Past 12 Hours) Vital Signs Temp Pulse Pulse Pulse Resp BP BP 09/15/24 20:00 36.8 C 92 H 20 163/70 H 09/15/24 15:46 36.4 C L 71 20 155/75 H 09/15/24 13:37 77 09/15/24 12:32 36.5 C 80 16 150/71 H Pulse Ox O2 Del Method 09/15/24 20:00 93 Room Air 09/15/24 15:46 92 Room Air 09/15/24 13:37 09/15/24 12:32 93 Room Air PG Care Time/CCT Total # of Minutes Spent Total Time Spent with Patient: Total time spent is greater than 50% in coordination of care (as documented) at patient's floor/unit and/or counseling patient: Coding Level of Care Code 09811 SUB INP/OBS CARE 2/35MIN Diagnoses Other osteomyelitis of right foot M86.8X7 Osteomyelitis type: other CKD stage 3b, GFR 30-44 ml/min 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, unspecified whether skilled nursing insulin use E11.610 Diabetes mellitus complication detail: with neuropathic arthropathy Diabetes mellitus complication status: with diabetic arthropathy Diabetes mellitus long wall mining machine tender insulin use: unspecified long wall mining machine tender insulin use status Diabetes mellitus type: type 2 Hypertension I10 PAD (peripheral artery disease) I73.9 Anemia in chronic kidney disease (CKD) N18.9; D63.1 (1) Osteomyelitis of right foot Osteomyelitis type: other Qualified Code(s): M86.8X7 - Other osteomyelitis, ankle and foot (3) Diabetes mellitus Diabetes mellitus complication detail: with neuropathic arthropathy Diabetes mellitus complication status: with diabetic arthropathy Diabetes mellitus skilled nursing insulin use: unspecified skilled nursing insulin use status Diabetes mellitus type: type 2 Qualified Code(s): E11.610 - Type 2 diabetes mellitus with diabe tic neuropathic arthropathy
[2024-09-15] MEDS: SODIUM CHLORIDE 0.9% 500 ML IV ONE (23:01)
[2024-09-16] MEDS: SODIUM CHLORIDE 0.9% 500 ML IV ONE (00:22)
[2024-09-16] MEDS: MAGNESIUM SULFATE / D5W 1 GM/100 ML BAG IV ONE (02:13)
--- NOTE | 2024-09-16 05:48 | Communication Note ---
Date of Service: September 16, 2024 Patient newly in atrial fibrillation on telemetry. Patient remains asymptomatic w/o chest pain. Though in A Fib, remains rate controlled in 80. Potassium 4.5 and Magnesium 2.0 New JENNIFER on AM labs 09/15, no CHF, provided 1L NSS w/o A Fib resolution. Provided 1 g IV Mg w/o A Fib resolution. CHADVASC 2, recommend discussing anticoagulation with patient. Resident Activity Tracking Resident Involvement: Resident Care Provided Care Provided: Adult Hospital Medicine
[2024-09-16 06:09] LABS: Basophils # (auto) 0.03 K/uL (0.00-0.20); Basophils % (auto) 0.6 %; Eosinophils # (auto) 0.12 K/uL (0.00-0.50); Eosinophils % (auto) 2.5 %; Hematocrit (blood only) 23.1 % (42.0-52.0); Hemoglobin 7.3 g/dl (14.0-18.0); Immature Granulocytes # (auto) 0.02 K/uL (0.01-0.20); Immature Granulocytes % (auto) 0.4 %; Lymphocytes # (auto) 0.47 K/uL (1.20-3.40); Mean Corpuscular Hemoglobin 27.8 pg (25.0-34.0); Mean Corpuscular Hgb Conc 31.6 g/dL (32.0-36.0); Mean Corpuscular Volume 87.8 fL (80.0-100.0); Mean Platelet Volume 8.7 fL (9.4-12.4); Monocytes # (auto) 0.48 K/uL (0.11-0.59); Monocytes % (auto) 10.2 %; Neutrophils # (auto) 3.59 K/uL (1.40-6.50); Neutrophils % (auto) 76.3 %; Platelet Count 173 K/uL (130-400); RDW Coefficient of Variation 14.8 % (11.5-14.5); RDW Standard Deviation 47.3 fL (36.4-46.3); Red Blood Count 2.63 M/uL (4.70-6.10); White Blood Count 4.71 K/ul (4.8-10.8)
[2024-09-16 06:23] LABS: Albumin Globulin Ratio 1.3 (0.9-2); Albumin Level 3.6 gm/dl (3.4-5.0); BUN Creatinine Ratio 19.6 (10-20); Bilirubin,Total 0.6 mg/dl (0.2-1.0); Calcium 9.4 mg/dl (8.6-10.3); Creatinine Clr Calc Pharmacy 35.8 ml/min; Globulin 2.8 gm/dl (2.5-4.0); Magnesium 2.1 mg/dl (1.7-2.4); Potassium 4.2 mmol/L (3.5-5.1); Total Protein 6.4 gm/dl (6.0-8.3)
[2024-09-16 06:36] LABS: Polychromasia 1+
[2024-09-16 06:39] LABS: INR 1.1 (0.9-1.1); Partial Thromboplastin Ratio 1.2; Partial Thromboplastin Time 31 Seconds (21-31); Prothrombin Time 11.7 Seconds (9.0-12.0)
[2024-09-16] MEDS: LANTUS PER UNIT CHARGE SC SCH (09:38)
--- NOTE | 2024-09-16 11:33 | Nephrology Progress Note ---
Date of Service September 16, 2024 Assessment & Plan (1) Acute kidney injury: (2) Hypertension: (3) Diabetes mellitus: (4) Anemia in chronic kidney disease (CKD): (5) Osteomyelitis: (6) Osteomyelitis of right foot: Plan 69yo M with stage IIIb/IV CKD and recent history of acute kidney injury in June 2024 thought to be secondary to vancomycin nephrotoxicity when he was treated with 6 weeks course of Vanco and cefepime for right Charcot foot and osteomyelitis. Unknown baseline although no known history of CKD prior to that. Was admitted on 09/14/2024 with worsening right foot infection concern for abscesses and had I&D and bone biopsy which is currently pending what culture grew MSSA and currently on cefepime and linezolid. On admission creatinine was 2.0 which has been slowly worsening up to 2.7 this morning. Hemoglobin has been low and dropped to 7.3. He was also diagnosed with C. difficile colitis and currently on oral vancomycin. Urinalysis with trace proteinuria but no hematuria or pyuria. Renal ultrasound otherwise unremarkable with bilateral n ormal kidney and prostatomegaly with chronic outlet obstructive changes. LE arterial duplex with 50-70% stenosis in R posterior tibial artery. LE doppler neg for DVT. Clinically otherwise stable, blood pressure well-controlled. Reports voiding normally. -- Continue to monitor kidney function and electrolyte closely, does have many risk factors for progressive worsening of kidney function including hypertension, poorly controlled diabetes and repeated long courses of antibiotic exposure. -- Will check iron study, phosphate, okay to continue on Renvela for now. Admission and Anticipated Discharge Date Admission Date: September 13, 2024 Subjective Arnaldo was evaluated this morning. He reports overall feeling well, denies any symptoms. Denies significant pain at right foot. Blood pressure stable. Reports decent appetite, voiding normally. Review of Systems Review of Systems: Detailed review of system was unremarkable. Physical Exam Constitutional: WD/WN, vitals as above no acute distress Eyes: + anicteric sclerae Neck: normal visual inspection Cardiovascular: RRR, no murmur, no edema Musculoskeletal: Rt foot in dressing Skin: Rt foot ulcer Neurologic: no focal motor deficits Psychiatric: Orientation: alert and oriented x 3 Results & Data Vital Signs (Past 12 Hours) Vital Signs Temp Pulse Pulse Resp BP Pulse Ox O2 Del Method 09/16/24 10:59 36.6 C 80 16 133/63 96 Room Air 09/16/24 07:50 36.7 C 83 18 142/72 H 93 Room Air 09/16/24 05:12 76 09/16/24 04:38 36.3 C L 80 20 118/66 92 Room Air PG Care Time/CCT Total # of Minutes Spent Total Time Spent with Patient: Total time spent is greater than 50% in coordination of care (as documented) at patient's floor/unit and/or counseling patient: Coding Level of Care Code 97751 SUB INP/OBS CARE 2/35MIN Diagnoses Acute kidney injury N17.9 Hypertension 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, unspecified whether terminal worker insulin use E11.610 Diabetes mellitus type: type 2 Diabetes mellitus chcf insulin use: unspecified chcf insulin use status Diabetes mellitus complication status: with diabetic arthropathy Diabetes mellitus complication detail: with neuropathic arthropathy Anemia in chronic kidney disease (CKD) N18.9; D63.1 Osteomyelitis M86.9 Other osteomyelitis of right foot M86.8X7 Osteomyelitis type: other (3) Diabetes mellitus Diabetes mellitus type: type 2 Diabetes mellitus terminal worker insulin use: unspecified chcf insulin use status Diabetes mellitus complication status: with diabetic arthropathy Diabetes mellitus complication detail: with neuropat hic arthropathy Qualified Code(s): E11.610 - Type 2 diabetes mellitus with diabetic neuropathic arthropathy (6) Osteomyelitis of right foot Osteomyelitis type: other Qualified Code(s): M86.8X7 - Other osteomyelitis, ankle and foot
[2024-09-16] MEDS ORDERED: SODIUM CHLORIDE 0.9% 50 ML IV PRN (11:48)
[2024-09-16] MEDS ORDERED: SODIUM CHLORIDE 0.9% 100 ML IV PRN (11:48)
--- NOTE | 2024-09-16 21:51 | Hospitalist Progress Note ---
Date of Service September 16, 2024 Assessment & Plan (1) Osteomyelitis of right foot: (2) CKD stage 3b, GFR 30-44 ml/min: (3) Diabetes mellitus: (4) Hypertension: (5) PAD (peripheral artery disease): (6) Anemia in chronic kidney disease (CKD): Plan Recurrent right foot osteomyelitis- Patient records requested from [facility], where he was treated with 6 weeks of IV antibiotics Follow blood culture and blood culture sensitivities Empiric Zyvox 600 mg IV every 12 hours and cefepime 2 g IV every 12 hours Patient with adverse reaction to vancomycin, which cannot be used Zyvox chosen instead of daptomycin, due to question of possible bronchitis on chest x-ray CT scan of foot shows extensive struct of changes throughout the midfoot, TMT joints, subtalar joint, and to lesser degree at the ankle. Midfoot collapse. Extensive soft tissue edema. Fluid collection likely infiltrating throughout the midfoot. Superficial fluid collection and ulceration along the medial aspect of the plantar midfoot concerning for abscess Patient did have history of right lower extremity DVT, but has negative venous Dopplers this evening Lower extremity arterial Dopplers show bilateral plaque both lower extremities, and 50 to 70% stenosis of the right posterior tibial artery. Triphasic waveforms throughout both lower extremities Appreciate podiatry: S/P I and D. Right foot incision and drainage of infected bone; right foot bone biopsy Patient will likely need PICC line placement and long-term IV antibiotics As noted above, obtaining records from [facility] Acetaminophen 650 mg by mouth every 6 hours as needed for mild pain or fever Morphine sulfate 2 mg IV every 3 hours as needed for moderate pain Morphine sulfate 4 mg IV every 3 hours as needed for severe pain Consulted nfectious disease Consulted wound care due to anemia will transfuse 1 unit of PRBC. CKD- Family reports acute injury occurred while using vancomycin IV for previous infection Creatinine 2.35 on admission, will need to compare to [facility] records Follow laboratory serially Placed on NSS at 125 mL/h Continue Savella Mayor, sodium bicarbonate, Niferex, vitamin D 2, and Procrit every other week Appreciate nephrology input. Discussed with patient regarding risk of JENNIFER from PO vanco. Likely this will not be absorbed and this is only preventative dose. will monitor. ordered one unit of PRBC, likely JENNIFER is multifactorial. Diabetes mellitus- Glucose 187 on admission N.p.o. 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 Rate is currently controled Patient has had this rate since admission Admission and Anticipated Discharge Date Admission Date: September 13, 2024 Subjective Patient reports no new concerns. Has multiple questions regarding his blood work which have been answered. Review of Systems Review of Systems: All systems reviewed & are unremarkable except as noted in HPI & below Physical Exam Physical Exam: HEENT--PERRL, EOMI Neck--supple. No JVD. No bruits. Thyroid normal, trachea midline, no adenopathy. Heart--normal S1 and S2. No murmurs, rubs or gallops. Lungs--clear bilaterally, no respiratory distress, no accessory muscle use. Abdomen--normal bowel sounds and soft. Nontender. Nondistended. Mildly obese Neurologic--cranial nerves II through XII grossly intact. Rheumatologic--normal range of motion except for right lower extremity ankle and foot Psychiatric--normal affect. Results & Data Results & Data Vital Signs (Past 12 Hours) Vital Signs Temp Pulse Pulse Resp BP BP Pulse Ox 09/16/24 19:28 36.7 C 93 H 20 159/76 H 94 09/16/24 16:57 36.8 C 87 16 145/71 H 93 09/16/24 15:57 36.8 C 95 H 20 152/75 H 91 09/16/24 15:49 36.9 C 90 16 142/66 H 91 09/16/24 15:15 37.0 C 85 16 135/74 93 09/16/24 15:00 95 H 09/16/24 14:46 36.7 C 88 20 146/77 H 94 09/16/24 14:45 36.7 C 87 20 146/77 H 94 09/16/24 14:27 36.5 C 90 16 145/77 H 94 09/16/24 14:22 151/75 H 09/16/24 14:12 37.1 C 89 16 153/74 H 92 09/16/24 13:56 36.8 C 86 16 121/68 94 09/16/24 10:59 36.6 C 80 16 133/63 96 O2 Del Method O2 Flow Rate 09/16/24 19:28 Room Air 09/16/24 16:57 09/16/24 15:57 09/16/24 15:49 09/16/24 15:15 09/16/24 15:00 09/16/24 14:46 09/16/24 14:45 09/16/24 14:27 09/16/24 14:22 09/16/24 14:12 09/16/24 13:56 0 09/16/24 10:59 Room Air PG Care Time/CCT Total # of Minutes Spent Total Time Spent with Patient: Total time spent is greater than 50% in coordination of care (as documented) at patient's floor/unit and/or counseling patient: Coding Level of Care Code 98225 SUB INP/OBS CARE 3/50MIN Diagnoses Other osteomyelitis of right foot M86.8X7 Osteomyelitis type: other CKD stage 3b, GFR 30-44 ml/min 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, unspecified whether residential insulin use E11.610 Diabetes mellitus complication detail: with neuropathic arthropathy Diabetes mellitus complication status: with diabetic arthropathy Diabetes mellitus residential insulin use: unspecified residential insulin use status Diabetes mellitus type: type 2 Hypertension I10 PAD (peripheral artery disease) I73.9 Anemia in chronic kidney disease (CKD) N18.9; D63.1 (1) Osteomyelitis of right foot Osteomyelitis type: other Qualified Code(s): M86.8X7 - Other osteomyelitis, ankle and foot (3) Diabetes mellitus Diabetes mellitus complication detail: with neuropathic arthropathy Diabetes mellitus complication status: with diabetic arthropathy Diabetes mellitus technician terminal and repeater insulin use: unspecified technician terminal and repeater insulin use status Diabetes mellitus type: type 2 Qualified Code(s): E11.610 - Type 2 diabetes mellitus with diabetic neuropathic arthropathy
[2024-09-17 07:27] LABS: Basophils # (auto) 0.04 K/uL (0.00-0.20); Basophils % (auto) 0.6 %; Eosinophils # (auto) 0.18 K/uL (0.00-0.50); Eosinophils % (auto) 2.8 %; Hematocrit (blood only) 27.3 % (42.0-52.0); Hemoglobin 8.8 g/dl (14.0-18.0); Immature Granulocytes # (auto) 0.06 K/uL (0.01-0.20); Immature Granulocytes % (auto) 0.9 %; Lymphocytes # (auto) 0.65 K/uL (1.20-3.40); Lymphocytes % (auto) 10.2 %; Mean Corpuscular Hemoglobin 28.4 pg (25.0-34.0); Mean Corpuscular Hgb Conc 32.2 g/dL (32.0-36.0); Mean Corpuscular Volume 88.1 fL (80.0-100.0); Mean Platelet Volume 8.6 fL (9.4-12.4); Monocytes # (auto) 0.52 K/uL (0.11-0.59); Monocytes % (auto) 8.1 %; Neutrophils # (auto) 4.94 K/uL (1.40-6.50); Neutrophils % (auto) 77.4 %; Platelet Count 184 K/uL (130-400); RDW Standard Deviation 48.2 fL (36.4-46.3); White Blood Count 6.39 K/ul (4.8-10.8)
[2024-09-17 07:30] LABS: Albumin Level 3.8 gm/dl (3.4-5.0); BUN Creatinine Ratio 21.5 (10-20); Calcium 10.3 mg/dl (8.6-10.3); Creatinine Clr Calc Pharmacy 37.9 ml/min; Phosphorus 3.5 mg/dl (2.5-4.9); Potassium 4.3 mmol/L (3.5-5.1)
--- NOTE | 2024-09-17 08:57 | XCELERA ---
[id number]
--- NOTE | 2024-09-17 10:41 | Nephrology Progress Note ---
Date of Service September 17, 2024 Assessment & Plan (1) Acute kidney injury: (2) Hypertension: (3) Diabetes mellitus: (4) Anemia in chronic kidney disease (CKD): (5) Osteomyelitis: (6) Osteomyelitis of right foot: Plan 69yo M with stage IIIb/IV CKD and recent history of acute kidney injury in June 2024 thought to be secondary to vancomycin nephrotoxicity when he was treated with 6 weeks course of Vanco and cefepime for right Charcot foot and osteomyelitis. Unknown baseline although no known history of CKD prior to that. Was admitted on 09/14/2024 with worsening right foot infection concern for abscesses and had I&D and bone biopsy which is currently pending what culture grew MSSA and currently on cefepime and linezolid. On admission creatinine was 2.0 which has been slowly worsening up to 2.7 this morning. Hemoglobin has been low and dropped to 7.3. He was also diagnosed with C. difficile colitis and currently on oral vancomycin. Urinalysis with trace proteinuria but no hematuria or pyuria. Renal ultrasound otherwise unremarkable with bilateral n ormal kidney and prostatomegaly with chronic outlet obstructive changes. LE arterial duplex with 50-70% stenosis in R posterior tibial artery. LE doppler neg for DVT. Clinically otherwise stable, blood pressure well-controlled. Reports voiding normally. Kidney function staying relatively stable, electrolyte acceptable. Hemoglobin remains low but slightly improved with iron deficiency. -- Continue to monitor kidney function and electrolyte closely, does have many risk factors for progressive worsening of kidney function including hypertension, poorly controlled diabetes and repeated long courses of antibiotic exposure. --Discontinue Renvela, okay to continue on sodium bicarbonate for now, if bicarb remains normal, will consider stopping by tomorrow. --Continue on oral iron -- Will need outpatient nephrology follow-up once discharged, still deciding whether to continue in [place] or establish care in [place]. Admission and Anticipated Discharge Date Admission Date: September 13, 2024 Subjective Arnaldo was evaluated this morning. He reports overall feeling well, denies any symptoms. Denies significant pain at right foot, dressing dry, was changed yesterday and this morning. Blood pressure stable. Reports decent appetite, voiding normally. Kidney function staying relatively stable, phosphorus 3.5, bicarb 24. Potassium normal. Review of Systems Review of Systems: Detailed review of system was unremarkable. Physical Exam Constitutional: WD/WN, vitals as above no acute distress Eyes: + anicteric sclerae Neck: normal visual inspection Cardiovascular: RRR, no murmur, no edema Neurologic: no focal motor deficits Psychiatric: Orientation: alert and oriented x 3 Results & Data Vital Signs (Past 12 Hours) Vital Signs Temp Pulse Pulse Resp BP Pulse Ox O2 Del Method 09/17/24 07:58 36.7 C 79 16 138/74 94 Room Air 09/17/24 07:31 Room Air 09/17/24 07:24 80 09/17/24 03:06 36.7 C 82 18 116/67 94 Room Air 09/16/24 22:58 36.8 C 82 18 154/76 H 94 Room Air 09/16/24 22:50 Room Air PG Care Time/CCT Total # of Minutes Spent Total Time Spent with Patient: Total time spent is greater than 50% in coordination of care (as documented) at patient's floor/unit and/or counseling patient: Coding Level of Care Code 80614 SUB INP/OBS CARE 2/35MIN Diagnoses Acute kidney injury N17.9 Hypertension 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, unspecified whether day worker insulin use E11.610 Diabetes mellitus type: type 2 Diabetes mellitus day worker insulin use: unspecified ch[facility] insulin use status Diabetes mellitus complication status: with diabetic arthropathy Diabetes mellitus complication detail: with neuropathic arthropathy Anemia in chronic kidney disease (CKD) N18.9; D63.1 Osteomyelitis M86.9 Other osteomyelitis of right foot M86.8X7 Osteomyelitis type: other (3) Diabetes mellitus Diabetes mellitus type: type 2 Diabetes mellitus day worker insulin use: unspecified day worker insulin use status Diabetes mellitus complication status: with diabetic arthropathy Diabetes mellitus complication detail: with neuropat hic arthropathy Qualified Code(s): E11.610 - Type 2 diabetes mellitus with diabetic neuropathic arthropathy (6) Osteomyelitis of right foot Osteomyelitis type: other Qualified Code(s): M86.8X7 - Other osteomyelitis, ankle and foot
--- NOTE | 2024-09-17 21:47 | Hospitalist Progress Note ---
Date of Service September 17, 2024 Assessment & Plan (1) Osteomyelitis of right foot: (2) CKD stage 3b, GFR 30-44 ml/min: (3) Diabetes mellitus: (4) Hypertension: (5) PAD (peripheral artery disease): (6) Anemia in chronic kidney disease (CKD): Plan Recurrent right foot osteomyelitis- Patient records requested from [facility], where he was treated with 6 weeks of IV antibiotics Follow blood culture and blood culture sensitivities Empiric Zyvox 600 mg IV every 12 hours and cefepime 2 g IV every 12 hours Patient with adverse reaction to vancomycin, which cannot be used Zyvox chosen instead of daptomycin, due to question of possible bronchitis on chest x-ray CT scan of foot shows extensive struct of changes throughout the midfoot, TMT joints, subtalar joint, and to lesser degree at the ankle. Midfoot collapse. Extensive soft tissue edema. Fluid collection likely infiltrating throughout the midfoot. Superficial fluid collection and ulceration along the medial aspect of the plantar midfoot concerning for abscess Patient did have history of right lower extremity DVT, but has negative venous Dopplers this evening Lower extremity arterial Dopplers show bilateral plaque both lower extremities, and 50 to 70% stenosis of the right posterior tibial artery. Triphasic waveforms throughout both lower extremities Appreciate podiatry: S/P I and D. Right foot incision and drainage of infected bone; right foot bone biopsy Patient may need PICC line placement and long-term IV antibiotics vs oral. As noted above, obtaining records from [facility] Consulted infectious disease: need to discuss outpatient antibiotic regimen Consulted wound care due to anemia will transfuse 1 unit of PRBC on 09/16 CKD- Family reports acute injury occurred while using vancomycin IV for previous infection Creatinine 2.35 on admission, will need to compare to [facility] records Follow laboratory serially creatinine improved on 09/17 Continue Savella Mayor, sodium bicarbonate, Niferex, vitamin D 2, and Procrit every other week Appreciate nephrology input. Discussed with patient regarding risk of JENNIFER from PO vanco. Likely this will not be absorbed and this is only preventative dose. will monitor. ordered one unit of PRBC, likely JENNIFER is multifactorial. Diabetes mellitus- Glucose 187 on admission N.p.o. 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 Atrial flutter: holding anticoagulation due to anemia. Rate is currently controlled Patient has had this rate since admission Admission and Anticipated Discharge Date Admission Date: September 13, 2024 Subjective Patient reports feeling well. No complaints today. Physical Exam Physical Exam: HEENT--PERRL, EOMI Neck--supple. No JVD. No bruits. Thyroid normal, trachea midline, no adenopathy. Heart--normal S1 and S2. No murmurs, rubs or gallops. Lungs--clear bilaterally, no respiratory distress, no accessory muscle use. Abdomen--normal bowel sounds and soft. Nontender. Nondistended. Mildly obese Neurologic--cranial nerves II through XII grossly intact. Rheumatologic--normal range of motion except for right lower extremity ankle and foot Psychiatric--normal affect. Results & Data Results & Data Vital Signs (Past 12 Hours) Vital Signs Temp Pulse Pulse Resp BP Pulse Ox O2 Del Method 09/17/24 19:28 36.5 C 86 18 132/65 95 Room Air 09/17/24 15:36 36.7 C 78 18 134/66 94 Room Air 09/17/24 14:48 84 09/17/24 11:44 36.4 C L 77 18 134/64 96 Room Air PG Care Time/CCT Total # of Minutes Spent Total Time Spent with Patient: Total time spent is greater than 50% in coordination of care (as documented) at patient's floor/unit and/or counseling patient: Coding Level of Care Code 05858 SUB INP/OBS CARE 2/35MIN Diagnoses Other osteomyelitis of right foot M86.8X7 Osteomyelitis type: other CKD stage 3b, GFR 30-44 ml/min 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, unspecified whether custodial insulin use E11.610 Diabetes mellitus complication detail: with neuropathic arthropathy Diabetes mellitus complication status: with diabetic arthropathy Diabetes mellitus custodial insulin use: unspecified afternoon babysitter insulin use status Diabetes mellitus type: type 2 Hypertension I10 PAD (peripheral artery disease) I73.9 Anemia in chronic kidney disease (CKD) N18.9; D63.1 (1) Osteomyelitis of right foot Osteomyelitis type: other Qualified Code(s): M86.8X7 - Other osteomyelitis, ankle and foot (3) Diabetes mellitus Diabetes mellitus complication detail: with neuropathic arthropathy Diabetes mellitus complication status: with diabetic arthropathy Diabetes mellitus custodial insulin use: unspecified custodial insulin use status Diabetes mellitus type: type 2 Qualified Code(s): E11.610 - Type 2 diabetes mellitus with diabetic neuropathic arthropathy
--- NOTE | 2024-09-18 05:51 | Electrocardiogram Report ---
Test Reason : Blood Pressure : */* mmHG Vent. Rate : 96 BPM Atrial Rate : 100 BPM P-R Int : 188 ms QRS Dur : 94 ms QT Int : 376 ms P-R-T Axes : 50 55 66 degrees QTcB Int : 475 ms Poor data quality, interpretation may be adversely affected Possible Atrial fibrillation Otherwise normal ECG When compared with ECG of 13-Sep-2024 18:57, Flutter waves not visualized on current ECG Nonspecific T wave abnormality now evident in Lateral leads Confirmed by Clark Navarrete ([id number]) on 09/18/2024 5:51:00 AM Referred By: REFERRED SELF Confirmed By: Clark Navarrete
--- NOTE | 2024-09-18 05:52 | Electrocardiogram Report ---
Test Reason : Blood Pressure : */* mmHG Vent. Rate : 84 BPM Atrial Rate : 220 BPM P-R Int : * ms QRS Dur : 98 ms QT Int : 392 ms P-R-T Axes : * 67 56 degrees QTcB Int : 463 ms Atrial flutter with premature ventricular or aberrantly conducted complexes Abnormal ECG When compared with ECG of 15-Sep-2024 22:24, Atrial flutter waves visualized on current ECG Confirmed by Clark Navarrete ([id number]) on 09/18/2024 5:52:35 AM Referred By: REFERRED SELF Confirmed By: Clark Navarrete
[2024-09-18 06:42] LABS: Hematocrit (blood only) 26.4 % (42.0-52.0); Hemoglobin 8.5 g/dl (14.0-18.0); Mean Corpuscular Hemoglobin 28.4 pg (25.0-34.0); Mean Corpuscular Hgb Conc 32.2 g/dL (32.0-36.0); Mean Corpuscular Volume 88.3 fL (80.0-100.0); Mean Platelet Volume 8.6 fL (9.4-12.4); Platelet Count 162 K/uL (130-400); RDW Coefficient of Variation 14.8 % (11.5-14.5); RDW Standard Deviation 47.6 fL (36.4-46.3); Red Blood Count 2.99 M/uL (4.70-6.10); White Blood Count 5.16 K/ul (4.8-10.8)
[2024-09-18 07:08] LABS: Albumin Level 3.4 gm/dl (3.4-5.0); BUN Creatinine Ratio 20.5 (10-20); Calcium 9.9 mg/dl (8.6-10.3); Potassium 4.1 mmol/L (3.5-5.1)
--- NOTE | 2024-09-18 08:18 | Nephrology Progress Note ---
Date of Service September 18, 2024 Assessment & Plan (1) Acute kidney injury: (2) Hypertension: (3) Diabetes mellitus: (4) Anemia in chronic kidney disease (CKD): (5) Osteomyelitis: (6) Osteomyelitis of right foot: Plan 69yo M with stage III B/IV CKD and recent h/o JENNIFER in June 2024 thought to be secondary to vancomycin nephrotoxicity when he was treated with 6 weeks course of Vanco and cefepime for right Charcot foot and osteomyelitis. Unknown baseline although no known history of CKD prior to that. Was admitted on 09/14/2024 with worsening right foot infection concern for abscesses and had I&D and bone biopsy which is currently pending what culture grew MSSA and currently on cefepime and linezolid. On admission creatinine was 2.0 mg/dl which has been slowly worsened up to 2.6 to 2.7 mg/dl. Hemoglobin has been low and dropped to 7.3. He was also diagnosed with C. difficile colitis and currently on oral vancomycin. Urinalysis with trace proteinuria but no hematuria or pyuria. Renal ultrasound otherwise unremarkable with bilateral normal kidney and p rostatomegaly with chronic outlet obstructive changes. LE arterial duplex with 50-70% stenosis in R posterior tibial artery. LE doppler neg for DVT. Clinically otherwise stable, blood pressure well-controlled. Reports voiding normally. Kidney function staying relatively stable, electrolyte acceptable. Hemoglobin remains low but slightly improved with iron deficiency. -- Continue to monitor kidney function and electrolyte closely, quiet likely that this is actually his new baseline, does have many risk factors for progressive worsening of kidney function including hypertension, poorly co ntrolled diabetes and repeated long courses of antibiotic exposure. --continue on sodium bicarbonate. --Continue on oral iron --epogen 79149 units x 1 dose, has been getting procrit q2w --will need outpatient nephrology follow-up once discharged, still deciding whether to continue in [place] or establish care in [place]. Admission and Anticipated Discharge Date Admission Date: September 13, 2024 Pia Mcintosh was seen and evaluated this morning. He reports overall feeling well, denies any symptoms. Blood pressure stable. Reports decent appetite, voiding normally. Kidney function staying relatively stable, phosphorus 4.0, bicarb 23. Potassium normal. Review of Systems Review of Systems: Detailed review of system was unremarkable. Physical Exam Constitutional: WD/WN, vitals as above no acute distress Eyes: + anicteric sclerae Neck: normal visual inspection Cardiovascular: RRR, no murmur, no edema Neurologic: no focal motor deficits Psychiatric: Orientation: alert and oriented x 3 Results & Data Vital Signs (Past 12 Hours) Vital Signs Temp Pulse Pulse Resp BP Pulse Ox O2 Del Method 09/18/24 07:30 75 09/18/24 02:17 36.3 C L 85 18 143/75 H 94 Room Air 09/17/24 23:47 Room Air 09/17/24 22:14 35.6 C L 96 H 18 159/71 H 97 Room Air PG Care Time/CCT Total # of Minutes Spent Total Time Spent with Patient: Total time spent is greater than 50% in coordination of care (as documented) at patient's floor/unit and/or counseling patient: Coding Level of Care Code 54318 SUB INP/OBS CARE 2/35MIN Diagnoses Acute kidney injury N17.9 Hypertension 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, unspecified whether metal tank builder insulin use E11.610 Diabetes mellitus complication detail: with neuropathic arthropathy Diabetes mellitus complication status: with diabetic arthropathy Diabetes mellitus shelter insulin use: unspecified metal tank builder insulin use status Diabetes mellitus type: type 2 Anemia in chronic kidney disease (CKD) N18.9; D63.1 Osteomyelitis M86.9 Other osteomyelitis of right foot M86.8X7 Osteomyelitis type: other (3) Diabetes mellitus Diabetes mellitus complication detail: with neuropathic arthropathy Diabetes mellitus complication status: with diabetic arthropathy Diabetes mellitus shelter insulin use: unspecified shelter insulin use status Diabetes mellitus type: type 2 Qualified Code(s): E11.610 - Type 2 diabetes mellitus with diabetic neuropathic arthropathy (6) Osteomyelitis of right foot Osteomyelitis type: other Qualified Code(s): M86.8X7 - Other osteomyelitis, ankle and foot
--- NOTE | 2024-09-18 09:17 | Infectious Disease Progress Nt ---
Date of Service September 18, 2024 Assessment & Plan (1) Abscess of right foot: (2) Osteomyelitis: (3) Charcot joint of right foot: (4) PAD (peripheral artery disease): (5) CKD stage 3b, GFR 30-44 ml/min: Plan 69yo M wit h/o T2DM, DVT in RLE, bl AMIE, HFpEF, C diff colitis (positive result in [place] in 2018), right Charcot foot with right foot ulcer with osteomyelitis s/p 6 weeks of vancomycin/cefepime eot 06/05/24 (cx with CONS, course c/b renal failure related to vancomycin), h/o prior cx with MSSA and GBS, admitted 06/06-06/12 to [facility] where he had acute renal failure 2/2 vanc/Lasix and further abx were stopped, who presented with swelling and drainage from right foot. Here he has been afebrile, vss. No leukocytosis, Cr 2.35, AST/ALT wnl. CRP 5.32. UA negative. CXR perihilar peribronchial thickening as can be seen in the setting of infection or bronchitis. CT right foot with extensive destructive changes throughout the midfoot, TMT joints, subtalar joint, and to lesser degree at the ankle; midfoot collapse; extensive soft tissue edema, fluid collection likely infiltrating throughout the midfoot; superficial fluid collection and ulceration along the medial aspect of the plantar midfoot; concerning for abscess. LE arterial duplex with 50-70% stenosis in R posterior tibial artery. LE doppler neg for DVT. Renal ultrasound with prostatomegaly with e/o chronic outlet obstruction, incidental splenomegaly. He was started on linezolid and cefepime. ID consulted 09/14. S/p OR 09/14 and underwent right foot I+D and bone biopsy (per op note, samples taken from talus bone obtained through an adjacent incision). OR cultures with MSSA. OR path in process. Superficial wound cx with MSSA and Strep canis. TTE with mild MR. Based on op note, the OR cultures are from talus bone. Given positive bone cultures, he will need treatment for osteomyelitis. Given some peripheral arterial disease in RLE, and since it doesnt seem bone itself was debrided based on op note, I do favor IV antibiotics in this setting. I did also ask patient about C diff hx and he says this was 5-6 years ago and hasnt had GI issues since then while being on antibiotics. C diff ppx usually considered if there has been a recent infection, will therefore hold PO vanc. Discussed with patient and he prefers not being on extra medications and wants to do probiotics. Can stop ppx vanc. # Right foot abscess and OM s/p debridement of abscess and bone bx on 09/14 # Recently treated right foot OM ending 06/2024 # Peripheral arterial disease # h/o T2DM with Charcot foot # CKD III with h/o ARF r/t vancomycin (prior Cr in 08/28/24 was 2.55) # H/o C diff infection - f/u all cultures and bone biopsy - Natalie stopped linezolid and cefepime - Natalie also stopped PO vanc ppx after discussion with patient counseled on abx side effects and monitoring for diarrhea - Natalie started cefazolin 2g IV q8h, which he will need to continue for 6 weeks (start 09/14, end 10/25) - monitor weekly CBC w diff, CMP, ESR, CRP while on IV abx - he should follow up with his outpatient ID provider ID will discontinue active follow up at this time. Please do not hesitate to reconsult the Infectious Diseases service as needed. Francy Caal MD [facility], Division of Infectious Diseases [facility]: [phone] Admission and Anticipated Discharge Date Admission Date: September 13, 2024 Subjective Subsequent visit was provided via telemedicine using two-way real-time interactive telecommunication between the patient and the telemedicine provider. For the duration of the visit, the provider was performing the assessment from a different facility than the patient. This includesuse of bluetooth stethoscope forauscultationperformed by the telepresenter that the telemedicine provider can hear if described in the physical exam. Substation Technician contact information: Please call [facility] Call Center [phone]. (Phone Number For Physician Use Only) After establishing a telemedicine visit, patient was: Patient was verified with two unique identifiers, Patient/authorized rep acknowledged consent and understanding and Gave permission to continue telehealth session Time Spent with Patient: Subsequent => 55 min Patient doing well, no pain, vomiting, diarrhea. He expresses concern regarding IV antibiotics due to his prior experience with vancomycin. Abx: Linezolid 09/13-09/18 Cefepime 09/13->Cefazolin 09/18- Vanc PO ppx 09/15- Physical Exam Physical Exam: General: Awake, alert, no acute distress HEENT: NC/AT, EOMI, mmm Neck: supple Lungs: respirations non-labored Abdomen: soft, NT/ND Ext: no edema, dressing in place Results & Data Vital Signs (Past 12 Hours) Vital Signs Temp Pulse Pulse Resp BP Pulse Ox O2 Del Method 09/18/24 08:25 36.5 C 86 18 140/75 94 Room Air 09/18/24 07:30 75 09/18/24 02:17 36.3 C L 85 18 143/75 H 94 Room Air 09/17/24 23:47 Room Air 09/17/24 22:14 35.6 C L 96 H 18 159/71 H 97 Room Air Laboratory Results Labs reviewed. 09/13 BCX: ngtd 09/13 WCX: MSSA, Strep canis (carreno-sensitive) 09/14 OR cx: MSSA Diagnostic Findings Imaging reviewed.
[2024-09-18] MEDS: ceFAZolin 2000MG 2,000 MG/15 ML SYR IV SCH ×2 (09:22→14:23)
[2024-09-18] MEDS: EPOETIN ALFA 20,000 UNITS/ML VIAL SQ ONE (10:06)
--- NOTE | 2024-09-18 10:25 | Hospitalist Progress Note ---
Date of Service September 18, 2024 Assessment & Plan (1) Osteomyelitis of right foot: (2) CKD stage 3b, GFR 30-44 ml/min: (3) Diabetes mellitus: (4) Hypertension: (5) PAD (peripheral artery disease): (6) Anemia in chronic kidney disease (CKD): Plan Recurrent right foot osteomyelitis- Patient records requested from [facility], where he was treated with 6 weeks of IV antibiotics Follow blood culture and blood culture sensitivities Empiric Zyvox 600 mg IV every 12 hours and cefepime 2 g IV every 12 hours Patient with adverse reaction to vancomycin, which cannot be used Zyvox chosen instead of daptomycin, due to question of possible bronchitis on chest x-ray CT scan of foot shows extensive changes throughout the midfoot, TMT joints, subtalar joint, and to lesser degree at the ankle. Midfoot collapse. Extensive soft tissue edema. Fluid collection likely infiltrating throughout the midfoot. Superficial fluid collection and ulceration along the medial aspect of the plantar midfoot concerning for abscess Patient did have history of right lower extremity DVT, but has negative venous Dopplers this evening Lower extremity arterial Dopplers show bilateral plaque both lower extremities, and 50 to 70% stenosis of the right posterior tibial artery. Triphasic waveforms throughout both lower extremities Appreciate podiatry: S/P I and D. Right foot incision and drainage of infected bone; right foot bone biopsy Patient may need PICC line placement and long-term IV antibiotics vs oral. Consulted infectious disease: need to discuss outpatient antibiotic regimen Consulted wound care CKD- Family reports acute injury occurred while using vancomycin IV for previous infection Creatinine 2.35 on admission, will need to compare to [facility] records Follow laboratory serially Appreciate nephrology input. Diabetes mellitus- Glucose 187 on admission N.p.o. 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 Atrial flutter: holding anticoagulation due to anemia. Rate is currently controlled Patient has had this rate since admission Anemia s/p 1 unit of blood Hb stable post transfusion Admission and Anticipated Discharge Date Admission Date: September 13, 2024 Subjective patient seen and examined, he is doing well. he would like to be discharged on oral antibiotics if possible Review of Systems Review of Systems: All systems reviewed are negative, apart from the ones contained in the history. Physical Exam Physical Exam: The patient is awake, alert and oriented 3, well developed and well nourished, normocephalic and atraumatic, lying in bed and in no acute distress. HEENT--PERRL, EOMI, mucous membranes and oropharynx mildly dry Neck--supple. No JVD. No bruits. Thyroid normal, trachea midline, no adenopathy. Heart--normal S1 and S2. No murmurs, rubs or gallops. Lungs--clear bilaterally, no respiratory distress, no accessory muscle use. Abdomen--normal bowel sounds and soft. Extremities--no cyanosis or clubbing. No edema. Dermatologic--normal skin turgor, normal color, no abnormal lymph nodes, no rash. Neurologic--cranial nerves II through XII grossly intact. Rheumatologic--normal range of motion. Psychiatric--normal affect. Results & Data Results & Data Vital Signs (Past 12 Hours) Vital Signs Temp Pulse Pulse Resp BP Pulse Ox O2 Del Method 09/18/24 08:25 97.7 F 86 18 140/75 94 Room Air 09/18/24 07:30 75 09/18/24 02:17 97.3 F L 85 18 143/75 H 94 Room Air 09/17/24 23:47 Room Air PG Care Time/CCT Total # of Minutes Spent Total Time Spent with Patient: Total time spent is greater than 50% in coordination of care (as documented) at patient's floor/unit and/or counseling patient: Coding Level of Care Code 22120 SUB INP/OBS CARE 2/35MIN Diagnoses Other osteomyelitis of right foot M86.8X7 Osteomyelitis type: other CKD stage 3b, GFR 30-44 ml/min 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, unspecified whether termination clerk insulin use E11.610 Diabetes mellitus type: type 2 Diabetes mellitus termination clerk insulin use: unspecified fdc insulin use status Diabetes mellitus complication status: with diabetic arthropathy Diabetes mellitus complication detail: with neuropathic arthropathy Hypertension I10 PAD (peripheral artery disease) I73.9 Anemia in chronic kidney disease (CKD) N18.9; D63.1 Time Spent (min) 35 (1) Osteomyelitis of right foot Osteomyelitis type: other Qualified Code(s): M86.8X7 - Other osteomyelitis, ankle and foot (3) Diabetes mellitus Diabetes mellitus type: type 2 Diabetes mellitus termination clerk insulin use: unspecified termination clerk insulin use status Diabetes mellitus complication status: with diabetic arthropathy Diabetes mellitus complication detail: with neuropathic arthropathy Qualified Code(s): E11.610 - Type 2 diabetes mellitus with diabetic neuropathic arthropathy
--- NOTE | 2024-09-18 11:26 | Pharmacy Report ---
Pharmacy Glycemic Short Note 2 - Date of Service September 18, 2024 - Glycemic Short BSG Results (Last 24 hours): 09/17/24 09/17/24 09/17/24 12:03 17:13 20:23 Glucose POC Glucose 244 H 129 H 143 H 09/18/24 09/18/24 05:47 08:16 Glucose 126 H POC Glucose 159 H OUTPATIENT ANTIDIABETIC REGIMEN: * Lantus 30 units SC BID * A1c 7% 09/14/24 ASSESSMENT: 09/18 * Patient received total 58 units of insulin yesterday: 20 units basal and 38 units bolus, blood sugars acceptable. No changes in insulin dosing at this time. * Patient's IV antibiotics changed to IV Cefazolin x 6 weeks for Right foot abscess and OM s/p debridement of abscess and bone bx on 09/14. 09/15 * Patient received total 36 units of insulin yesterday: 23 units basal and 13 units bolus. * BSGs yesterday were [phone] mg/dl. Fasting BSG today was 115 mg/dl. * Basal dose this AM was increased about 20% from yesterday. Will continue with basal dose on a scale for HS today. * Novolog parameters tightened slightly this morning. 09/14 * 69 year old admitted with foot osteomyelitis. Previously treated per notes with IV antibiotics. Pharmacy consulted for glycemic management. Patient with potential JENNIFER, unclear however of baseline renal function - nephrology consulted. Patient started on Lantus 15 units bid, NPO this morning. Reasonable to continue current regimen, may adjust evening basal dose 10-15 units depending on blood sugar value. PLAN FOR INPATIENT GLYCEMIC CONTROL: * Basal insulin * Lantus 20 units SQ QAM * Lantus 5 units SQ HS for BSG > 180mg/dl * Bolus insulin * NovoLog per scale ACHS or Q6hrs while NPO * Goal Range: Low 110 mg/dL - High 140 mg/dL * Correction Factor: 20 mg/dL/unit * Nutritional / Prandial insulin per carb ratio of 1 unit per 7 grams CHO consumed
--- NOTE | 2024-09-18 17:10 | XRay Report ---
INDICATION: Cough. TECHNIQUE: Frontal radiograph of the chest. COMPARISON: None. FINDINGS: Cardiomegaly. Moderate pulmonary vascular congestion.. No infiltrate, pleural effusion or pneumothorax. No acute osseous abnormality evident. Bilateral shoulder prostheses noted. Right-sided PICC line catheter tip in the superior vena cava. IMPRESSION: Moderate pulmonary vascular congestion. Electronically signed by Pelon David 09-18-2024 5:10 PM
[2024-09-18 19:59] VITALS: RESP 18
--- NOTE | 2024-09-18 21:19 | Podiatry Progress Note ---
Date of Service September 18, 2024 Assessment & Plan (1) Osteomyelitis of right foot: (2) Diabetes mellitus: (3) Charcot joint of right foot: Plan Patient was examined and evaluated. - Continue wound care while inpatient. Can d/c home when stable medically. - Should be fit into walking boot for home use, ideally, before d/c for ambulating. - Otherwise, will need to be NWB with surgical shoe for protection/pivoting at home. - Will keep dressing clean, dry, and intact on discharge and f/u with us within a week. Will need followup with wound care outpatient, as well. - Will likely need IV antibiotics For the next 6-8 weeks if he wants to continue with limb salvage, Based on the bone cultures coming back positive. He has signed consent for the PICC line placement Admission and Anticipated Discharge Date Admission Date: September 13, 2024 Subjective Patient seen at bedside at lunchtime. Denies any new concerns or complaints. Feeling better since surgery and has tolerated wound care over the weekend. Is still pending definitive pathology but has discussed his case with infectious disease doctors this morning. Review of Systems Constitutional: + weakness; no fever, no chills and no f atigue Eyes: no problem reported Ear, Nose, Mouth, Throat: no problem reported Respiratory: no problem reported Cardiovascular: + edema; no problem reported Gastrointestinal: no nausea, no vomiting and no problem reported Musculoskeletal: + deformity, + swelling and + limited ra nge of motion; no problem reported Integumentary: + skin ulcer, + wounds and + erythema Neurologic: + unsteadiness, + loss of sensation, + n umbness and + paresthesia; no generalized weakness Psychiatric: no problem reported Physical Exam Physical Exam: Dressing left intact today, changed with the wound care team after surgery last week. Currently being managed by the wound care nursing. Cultures have come back with staph aureus as the likely pathologic bacteria. Bone pathology still pending at the time of examination. Dressing is otherwise clean, dry, and intact. Constitutional: WD/WN, vitals as above + ill appearing and + morbidly obese Eyes: PERRL, conjunctivae normal, anicteric sclerae ENMT: external ear and nose normal, oropharynx normal Neck: trachea midline, no thyromegaly normal visual inspection Respiratory: normal respiratory effort; no respiratory distress Cardiovascular: Rate/Rhythm: regular rate and regular rhythm Vessels: posterior tibial pulses present and dorsalis pedis pulses present Chest (Breasts): Chest: normal inspection of chest Gastrointestinal (Abdomen): Inspection/Auscultation: abdomen normal to inspection Percussion/Palpation: + abdomen tender and abdomen soft Musculoskeletal: no cyanosis or clubbing, extremities motor strength 5/5 Head/Neck/Chest: normocephalic and head atraumatic Extremities: extremities n ormal to inspection Skin: + ulcer, + wound, + skin atrophy, + fist ulous tract and + nails dystrophic Neurologic: awake; + abnormal sensation to monofilament and no focal motor deficits Psychiatric: A+Ox3, euthymic affect Results & Data Results & Data Vital Signs (Past 12 Hours) Vital Signs Temp Pulse Pulse Resp BP Pulse Ox O2 Del Method 09/18/24 19:31 36.5 C 81 18 137/69 95 Room Air 09/18/24 15:18 36.7 C 96 H 20 145/71 H 93 Room Air 09/18/24 14:10 84 09/18/24 11:43 36.7 C 86 18 124/63 94 Room Air (1) Osteomyelitis of right foot Osteomyelitis type: other Qualified Code(s): M86.8X7 - Other osteomyelitis, ankle and foot (2) Diabetes mellitus Diabetes mellitus type: type 2 Diabetes mellitus penitentiary insulin use: unspecified penitentiary insulin use status Diabetes mellitus complication status: with diabetic arthropathy Diabetes mellitus complication detail: with neuropathic arthropathy Qualified Code(s): E11.610 - Type 2 diabetes mellitus with diabetic neuropathic arthropathy
[2024-09-19 07:18] VITALS: PULSE 84
[2024-09-19 08:28] VITALS: BP 142/69; TEMP 98.2; O2SAT 96
[2024-09-19 08:32] LABS: Albumin Level 3.5 gm/dl (3.4-5.0); BUN Creatinine Ratio 19.9 (10-20); Calcium 9.9 mg/dl (8.6-10.3); Creatinine Clr Calc Pharmacy 34.6 ml/min; Phosphorus 4.2 mg/dl (2.5-4.9)
[2024-09-19] MEDS ORDERED: SODIUM BICARBONATE 650 MG TAB PO SCH (09:00)
--- NOTE | 2024-09-19 10:23 | Discharge Summary ---
Date of Service September 19, 2024 Admission HPI Per Admitting Provider The patient is a 69-year-old male with a past medical history including diabetic right foot osteomyelitis, that he and his family reports that he was treated with 6 weeks of IV antibiotics, and infection was reported to be healed. Patient had been doing reasonably well, but over the past week had noted some increased pain developing, and then this morning his right foot developed increased swelling and pain, with discharge noted. He went to [facility] emergency department, where they was standing room only, and since he was also interested in a second opinion, family brought him to [facility] ED for as sessment. Patient reportedly had had a DVT in his right lower extremity, and had been on Eliquis, which had been stopped about 7 days ago after negative repeat ultrasound. He also had arterial Dopplers done at the same time which reportedly showed mild change without intervention needed. He reports a history of C. difficile colitis, associated with multiple courses of antibiotics for his diabetic foot ulcer, but no recent symptoms. Patient will be signing a records release form to update his records, and go over exact course of treatment that was done Admission Exam (Per Admitting) Constitutional The patient is awake, alert and oriented 3, well developed and well nourished, normocephalic and atraumatic, lying in bed and in no acute distress. HEENT--PERRL, EOMI, mucous membranes and oropharynx mildly dry Neck--supple. No JVD. No bruits. Thyroid normal, trachea midline, no adenopathy. Heart--normal S1 and S2. No murmurs, rubs or gallops. Lungs--clear bilaterally, no respiratory distress, no accessory muscle use. Abdomen--normal bowel sounds and soft. Extremities--no cyanosis or clubbing. No edema. Dermatologic--normal skin turgor, normal color, no abnormal lymph nodes, no rash. Neurologic--cranial nerves II through XII grossly intact. Rheumatologic--normal range of motion. Psychiatric--normal affect. Discharge Data Consultations 09/13/24 22:22 ED Decision to Admit Stat 09/13/24 23:47 Consult Infectious Diseases Routine Consult Nephrology Stat Consult Podiatry Routine Procedures Performed Operation Date: 09/14/24 14:50 Actual Procedures p Right Foot Bone Biopsy and Incision and Drainage(Right) - Pernell La DPM Hospital Course (1) Osteomyelitis of right foot: (2) CKD stage 3b, GFR 30-44 ml/min: (3) Diabetes mellitus: (4) Hypertension: (5) PAD (peripheral artery disease): (6) Anemia in chronic kidney disease (CKD): Plan Recurrent right foot osteomyelitis- Patient records requested from [facility], where he was treated with 6 weeks of IV antibiotics Follow blood culture and blood culture sensitivities Empiric Zyvox 600 mg IV every 12 hours and cefepime 2 g IV every 12 hours Patient with adverse reaction to vancomycin, which cannot be used Zyvox chosen instead of daptomycin, due to question of possible bronchitis on chest x-ray CT scan of foot shows extensive changes throughout the midfoot, TMT joints, subtalar joint, and to lesser degree at the ankle. Midfoot collapse. Extensive soft tissue edema. Fluid collection likely infiltrating throughout the midfoot. Superficial fluid collection and ulceration along the medial aspect of the plantar midfoot concerning for abscess Patient did have history of right lower extremity DVT, but has negative venous Dopplers this evening Lower extremity arterial Dopplers show bilateral plaque both lower extremities, and 50 to 70% stenosis of the right posterior tibial artery. Triphasic waveforms throughout both lower extremities Appreciate podiatry: S/P I and D. Right foot incision and drainage of infected bone; right foot bone biopsy Patient may need PICC line placement and long-term IV antibiotics vs oral. Consulted infectious disease: need to discuss outpatient antibiotic regimen Consulted wound care CKD- Family reports acute injury occurred while using vancomycin IV for previous infection Creatinine 2.35 on admission, will need to compare to [facility] records Follow laboratory serially Appreciate nephrology input. Diabetes mellitus- Glucose 187 on admission N.p.o. 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 Atrial flutter: holding anticoagulation due to anemia. 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
--- NOTE | 2024-09-29 14:18 | Operative Report ---
Post Operative Report Pre & Post Diagnosis Operation Date: 09/14/24 14:50 Pre-Op Diagnosis: Osteomyelitis of right foot Post-Op Diagnosis: Osteomyelitis of right foot I identified the patient and participated in the time-out.: Yes Procedure Operation Date: 09/14/24 14:50 Actual Procedures p Right Foot Bone Biopsy and Incision and Drainage(Right) - Pernell La DPM Surgeon Pernell La DPM Almond Huller None Estimated Blood Loss 20 Findings Consistent with Post-Op Diagnosis Extensive tunneling of the wound noted underneath the foot, extending from the ulceration. This did extend deep to the bone, consistent with underlying osteomyelitis in the presence of Charcot neuroarthropatthy. Specimens Casework Specialist samples of likely talus bone was obtained and sent for culture and pathology testing. Anesthesia Type MAC Complications none Disposition Accompanied Patient To Recovery: Yes Disposition: Recovery Room Indications This patient is a recent hospital consult of [facility] who presented with a complex history of long-standing Charcot neuroarthropathy. He has developed an ulceration overlying this since that time of thee initial Charcot collapse. This subsequently got infected, causing a large overlying blister and abscess. This was drained at bedside and the need for surgical involvement was immediately evident. Preoperative instructtions, postoperative instructions, relative risks, and outcomes were all discussed at length. Consent was obtained for this right foot I&D with bone biopsy. Description of Procedure The patient was brought to the operating room placed on the operating table in the supine position. Following the initiation of IV sedation, local analgesia was obtained utilizing 20 cc of half percent Marcaine in an ankle block fashion. The right lower extremity waas scrubbed, prepped, and draped in the usual aseptic manner. No tourniquet was utilized during the duration of this procedure. Attention was directed to the planttar medial aspect of the patient's right medial longitudinal arch where a diabetic neuropathic ulceration was noted underlying the Displaced aspect of the talar head bone Plantarly. The ulceration was sharply debrided utilizing a 15 blade and curet. The ulceration tunneled in 3 distinct directions, including proximally along the posterior tibial tendon distally and the subcutaneous fascia, and across the lateral plantar aspect of the foot. The ulceration further probed directly to the bone which was able to be obtained in a biopsy specimen with the use of a round bur. Further, unit support representative samples were sent for bone culture and sensitivity testing to help identify the underlying causative organism. After all necrotic nonviable tissue was removed the surgical site was flushed with copious amounts of sterile saline. Sutures were utilized at the distalmost aspect of the ulceration where an accessory incision was made to further gain access for the bone biopsy. The remainder of the ulceration was left open and packed with iodoform packing gauze. The surgical site was dressed with Xeroform gauze, 4 x 4 gauze, Kerlix, and an Jean wrap. The patient tolerated the procedure well and was transferred to the recovery room with vital signs stable and vascular status intact to the feet. Following postoperative monitoring, the patient was given prescriptions and instructions were discussed with him prior to surgery and he will then be transferred back to the floor for further examination and treatment with likely PICC placement prior to discharge. I attest to the content of the Intraoperative Record and any orders documented therein. Any exceptions are noted below.
--- NOTE | 2024-09-30 05:59 | Coding Query ---
DEBRIDEMENT DOCUMENTATION To promote full compliance with coding requirements relating to patient care, physician participation is requested in all cases of paperboard machine operator uncertainty. Please assist us with the question(s) below: Please place an X in the parenthesis (x). If other, please document the finding: Type of Debridement: (X) Excisional Debridement- Cutting away necrotic, devitalized tissue or slough to the level of viable tissue using a sharp instrument (i.e. scalpel, scissors, etc.) ( ) Non Excisional Debridement- The removal of necrotic, devitalized tissue or slough by means of scraping, mechanical brushing, flushing, or washing (i.e. irrigation,whirlpool);minor removal of loose fragments. ( ) Other (please specify): Instrument Used: (X) Scissors (X) Scalpel (X) Curette (X) Other (please specify): Rongeur Depth of Debridement: ( ) Skin ( ) Skin and Subcutaneous Tissue ( ) Skin, Subcutaneous Tissue and Muscle (X) Skin, Subcutaneous Tissue, Muscle and Bone ( ) Other (please specify): Would tend to use ICD 31714, I&D Infected bone for this. Please Specify the Size of Debridement in cm2: Thank you ANA MARÍA Sosa CCS
== END 2024-09-19 11:13 | disposition home health service (06) | DRG 988 ==
LOC: ED 18:13 → SUATTDRO 23:47 → 2N 23:47